=== PATIENT | male | born 1945 | race Caucasian/White ===

== ENCOUNTER 2023-05-31 07:18 | Day surgery (SDC) | payer OTHER ==
--- NOTE | 2023-04-25 14:42 | RAD REPORT ---
EXAM DESCRIPTION: Lupe Quintanilla And Briseida (2 Views)04/25/2023 2:23 pm CLINICAL HISTORY: Preop. Hypertension COMPARISON: None FINDINGS: The lungs appear clear of acute infiltrate. The heart is normal size IMPRESSION: No acute abnormalities displayed
[2023-04-25 14:43] LABS: Anion Gap 8.8 mEq/L (5.0-15.0); Potassium 3.8 mEq/L (3.5-5.1)
[2023-04-25 14:52] LABS: PT Prothrombin Time 12.4 SECONDS (9.5-12.5); Protime INR 1.13
[2023-04-25 15:23] LABS: Absolute Eosinophils 0.1 K/uL (0-0.5); Absolute Lymphocytes (CBC) 0.8 K/uL (0.7-4.9); Absolute Monocytes 0.6 K/uL (0.1-1.3); Absolute Neutrophil 3.6 K/uL (1.8-8.0); Basophils % 0.5 % (0-1.3); Eosinophils % 1.9 % (0-4.4); Hematocrit 39.8 % (39.6-49.0); Hemoglobin 13.5 g/dL (13.6-17.9); Lymphocytes % 15.8 % (15.3-44.8); MCH 27.6 pg (27.0-35.0); MCHC 33.8 g/dL (32.0-36.0); MCV 81.7 fL (80-100); MPV 8.6 fL (7.6-11.3); Monocytes % 12.3 % (3.3-12.3); Neutrophils % 69.5 % (41.7-73.7); Nucleated Red Blood Cells % 0.3 % (0-0); Platelets 100 thou/uL (152-406); RBC Red Blood Cell Count 4.88 M/uL (4.33-5.43)
--- NOTE | 2023-04-28 14:49 | EKG ---
Test Date: 2023-04-25 Test Time: 15:06:52 Strip Stamp Straightener: BENITO MEASUREMENT RESULTS: Intervals: Rate: 66 [place]: 200 QRSD: 146 QT: 406 QTc: 425 [place]: P: 61 [place]: 200 QRS: 85 T: 48 INTERPRETIVE STATEMENTS: Normal sinus rhythm Right bundle branch block Abnormal ECG No previous ECG available for comparison Electronically Signed On 04-28-23 14:43:20 EXPEDITER CLERK by Enzo Hubbard
[2023-05-31] MEDS: Ringers Lactate 1,000 ML IV ONE (07:35)
[2023-05-31] MEDS ORDERED: FENTANYL CITR 100 MCG/2 ML ONE (08:11)
[2023-05-31] MEDS ORDERED: propofoL 200 MG/20 ML VIAL IV ONE (08:11)
[2023-05-31] MEDS ORDERED: ONDANSETRON 4 MG/2 ML VIAL ONE (08:11)
[2023-05-31] MEDS: CEFAZOLIN SODIUM 2 GM/VIAL ONE (08:19)
[2023-05-31] MEDS ORDERED: GLYCOPYRROLATE 0.2 MG/ML SYR ONE (08:41)
[2023-05-31] MEDS ORDERED: NS 0.9% VIAL 10 ML ONE (08:44)
[2023-05-31] MEDS ORDERED: EPHEDRINE SULF 50 MG/ML VIAL ONE (08:44)
[2023-05-31] MEDS ORDERED: CODEINE 30MG/APAP 300MG TAB PO PRN (10:03)
[2023-05-31] MEDS: PHENAZOPYRIDINE 100MG TAB PO ONE (10:15)
[2023-05-31] MEDS ORDERED: PHENAZOPYRIDINE 100MG TAB PO ONE (10:17)
[2023-05-31 12:36] VITALS: BP 112/66; TEMP 97.2; O2SAT 10
--- NOTE | 2023-05-31 20:52 | OP ---
Surgeon: RAPHAEL LINDA Preoperative Diagnoses: 1.Benign prostatic hypertrophy with lower urinary tract obstruction and symptoms. 2.Recurrent/persistent urinary tract infection. Postoperative Diagnoses: 1.Benign prostatic hypertrophy with lower urinary tract obstruction and symptoms. 2.Recurrent/persistent urinary tract infection. Principal Procedure: UroLift with 6 UL2 devices deployed and 1 ATC UL1 device deployed for a total o f 7 implants placed. Indication For Procedure: Mr. Miller presented to the Urology Clinic with obstructive lower urinary symptoms and an issue with urinary tract infection. He was evaluated including imaging with no uppe r tract calculi and only the presence of a mildly complex right cystic renal lesion. He subsequently was medically managed, but had persistence of the urinary tract infection associated with incomplete emptying of his bladder. As a result, he was counseled on options for definitive management and colin cted to proceed with surgical therapy. The patient of note was on an extended course of antimicrobia l therapy as of the time of this procedure. Procedure In Detail: The patient was consented in the preoperative holding area before being transfe rred to the operative suite where general anesthesia was induced. He was placed in the lithotomy pos ition, padded and secured to the table appropriately, and his genitalia was prepped with Hibiclens be fore being draped in standard fashion. The case was begun using a 20-Luxembourgish UroLift sheath and visua l obturator to traverse the urethra and into the bladder with relative ease. As previously noted, th ere was significant interdigitating lateral lobar hypertrophy with a mild median lobar bump that was not significantly intravesically projecting. As a result, I switched the visual obturator for the fi rst UL2 device and an implant. I targeted this implant on the patient's left side about 1.5 to 2 cm distal to the bladder neck at around the 1 to 2 o'clock position. Touching the tissue with the scope angled about 10 to 15 degrees against the tissue laterally to the patient's left, I pulled the maikol er, delivering the needle through the substance of the prostate to the capsular surface. I then angl ed the scope an additional 15 degrees laterally compressing the tissue before pulling the trigger a s econd time, deploying the capsular tab and partially retracting the needle. A third pull of the trig ryley did further retract the needle and tensioned the suture. I then advanced the scope back towards the midline and then 2 to 3 mm towards the bladder neck until the white line of the monofilament was centered in the delivery Nicholas. At this point, I pulled the trigger a fourth time tailoring the suture and deploying the urethral end piece. The end piece did situate with a nice rim of tissue between t he prostatic urethra and the entry into the bladder. There was no evidence of any intravesical compo nent of the implant after survey of the bladder neck area cystoscopically. I thus advanced the UroLi ft device back into the patient's bladder and switched that device for a new implant, which was then targeted on the patient's right side contralaterally at about 1.5 to 2 cm distal to the bladder neck. This was placed between the 10 to 11 o'clock position on the patient's right successfully. I then targeted the patient's apex and at the level of the verumontanum. After kissing the verumontanum, I placed an implant at the 2 to 3 o'clock position on the patient's left before placing a contralateral implant at around the 10 o'clock position on the patient's right. I then surveyed the channel creat ed using a visual obturator and there was residual lateral lobar intrusion largely emanating from the patient's left side; so I placed a fifth implant in the mid zone tissue between the apex and the edwin dder neck implant. This did nicely lateralize the tissue and so I surveyed the channel again created . At this point, that median lobar bump was now more evident as some of the residually obstructing t issue; but since it did not extend with any significant elevation of the median bar beyond a small po rtion of the bladder neck, attempts to manipulate it using the UroLift 2 device were not successful. As a result, I employed the ATC advanced tissue control device using the UL1 platform, the UroLift 1 platform to grasp and pull that lobar tissue back into the prostatic urethra away from the bladder n alvin and then angle at least 20 to 30 degrees towards the patient's right and targeting the needle del denis at around the 9 o'clock position, I deployed that implant and did successfully pin the median l obe over to the patient's right side of the prostate. I then surveyed the channel created, and there was a slight residual degree of apical lateral intrusion emanating from the patient's left side, so a seventh and final implant using the UroLift 2 device was performed this time in a stacked position above the midzone implant previously placed there, which did beautifully elevate and remove that tiss ue and leave a beautiful continuous anterior channel. This channel was evident even with the bladder completely decompressed. There was a slight degree of hematuria at this point, but nothing signific ant. So I retrograde filled his bladder with saline before removing the scope and placing an 18-Fren ch catheter into his bladder with ease. About 25 cc of sterile water was placed in the balloon, and the catheter was connected to a leg bag. The patient was then taken out of the lithotomy position, a wakened from general anesthesia, transferred to a stretcher, and then transferred to the [facility] in good condition. Complications: None. Discharge Disposition: He will be standard UroLift followup pathway with anticipated followup in [facility] a month's time. He will complete his course of antimicrobial therapy within the next several days and we will discontinue that antimicrobial therapy and assess for any signs of persistence of the in fection at that time. AUDREY/MODL Voice ID: [id number] Report ID: [id number]
== END 2023-05-31 11:35 | disposition home or self-care (01) ==
LOC: OR 07:18
PROVIDERS: ATTEND Urology
PROC: 0T7D8DZ Dilation of Urethra with Intraluminal Device, Via Natural or Artificial Opening Endoscopic (ICD-10-PCS; principal; 2023-05-31 08:30)
DX: N40.1 Benign prostatic hyperplasia with lower urinary tract symptoms (principal); Z87.440 Personal history of urinary (tract) infections; I10 Essential (primary) hypertension; Z88.0 Allergy status to penicillin
CPT/HCPCS: 93005; 87088; 85025; 87086; 80048; 36415; 85610; 87077; 87186; 71046; 52441; 52442 ×6; A4216; J2704; J3010; J2405; J7120

== ENCOUNTER 2023-06-01 21:02 | Inpatient (IN) | payer OTHER ==
[2023-06-01] MEDS ORDERED: NACL 0.9% IRR SOLN 4,000 ML IRR ONE (21:47)
[2023-06-01 23:04] LABS: Absolute Eosinophils 0.1 K/uL (0-0.5); Absolute Lymphocytes (CBC) 0.7 K/uL (0.7-4.9); Absolute Monocytes 0.6 K/uL (0.1-1.3); Absolute Neutrophil 2.8 K/uL (1.8-8.0); Eosinophils % 2.2 % (0-4.4); Hematocrit 40.9 % (39.6-49.0); Hemoglobin 13.7 g/dL (13.6-17.9); Lymphocytes % 15.8 % (15.3-44.8); MCH 27.2 pg (27.0-35.0); MCHC 33.5 g/dL (32.0-36.0); MCV 81.2 fL (80-100); MPV 8.1 fL (7.6-11.3); Monocytes % 13.6 % (3.3-12.3); Neutrophils % 68.4 % (41.7-73.7); Nucleated Red Blood Cells % 0.2 % (0-0); Platelets 110 thou/uL (152-406); RBC Red Blood Cell Count 5.04 M/uL (4.33-5.43); Red Cell Distribution Width 13.7 % (12.1-15.2)
[2023-06-01 23:23] LABS: Anion Gap 11.5 mEq/L (5.0-15.0); Potassium 3.5 mEq/L (3.5-5.1)
[2023-06-02] MEDS ORDERED: NACL 0.9% IRR SOLN 2,000 ML IRR ONE (00:43)
--- NOTE | 2023-06-02 00:55 | EDPHYS ---
Physician Documentation [facility] Name: Salo Miller Age: 77 yrs Sex: Male : 1945 Arrival Date: 06/01/2023 Time: 21:02 Bed 19 Private MD: ED Physician Antoine Jurado HPI: 05/31 23:37 This 77 yrs old Male presents to ER via Ambulatory with complaints of Urinary Retention.kb 23:39 Pt is a 77 year old male who presents for urinary retention since 1500 today. States he kb had a urolift done yesterday here, by dr munson. Reports hematuria, dysuria and urinary frequency after surgery and until the urinary retention started at 1500 today. Denies fever. . Historical: - Allergies: 21:29 PENICILLINS; kd3 - Immunization history:: Adult Immunizations up to date. - Social history:: Smoking status: Patient denies any tobacco usage or history of. ROS: 23:37 Constitutional: As per HPI kb Exam: 23:38 Constitutional: This is a well developed, well nourished patient who is awake, alert, kb and in no acute distress. Head/Face: Normocephalic, atraumatic. ENT: Moist Mucous membranes Cardiovascular: Regular rate Respiratory: Respirations even and unlabored. No increased work of breathing. Talking in full sentences Skin: Warm, dry with normal turgor. Normal color. MS/ Extremity: Pulses equal, no cyanosis. Neurovascular intact. Full, normal range of motion. Neuro: Awake and alert, GCS 15, oriented to person, place, time, and situation. Moves all extremities. Normal gait. 23:38 Abdomen/GI: Inspection: abdomen appears normal, Bowel sounds: normal, Palpation: soft, in all quadrants, mild abdominal tenderness, in the suprapubic area, Vital Signs: 21:27 BP 158 / 103; Pulse 77; Resp 20; Temp 98.5(O); Pulse Ox 98% ; Weight 95.25 kg; Height 5 kd3 ft. 10 in. ; 21:30 BP 114 / 83; Pulse 67; Resp 17 S; Pulse Ox 95% on R/A; jw7 22:30 BP 144 / 77; Pulse 65; Resp 17 S; Pulse Ox 93% on R/A; jw7 23:00 BP 127 / 74; Pulse 60; Resp 16 S; Pulse Ox 93% on R/A; jw7 06/01 00:00 BP 125 / 81; Pulse 64; Resp 17 S; Pulse Ox 95% on R/A; jw7 01:00 BP 126 / 75; Pulse 63; Resp 17 S; Pulse Ox 93% on R/A; jw7 02:00 BP 127 / 75; Pulse 60; Resp 17; Pulse Ox 95% ; vc1 03:00 BP 126 / 67; Pulse 62; Resp 17; Pulse Ox 93% on R/A; vc1 04:00 BP 123 / 77; Pulse 64; Resp 17; Pulse Ox 99% ; vc1 05/31 21:27 Body Mass Index 30.13 (95.25 kg, 177.8 cm) kd3 MDM: 05/31 21:09 Patient medically screened. kb 23:38 Differential diagnosis: UTI, urinary retention. Data reviewed: vital signs, nurses kb notes. 23:39 ED course: Dr Jurado inserted a 3-way cunha and ordered continuous irrigation x 4 kb liters. 06/01 00:51 Consideration of Admission/Observation Patient was admitted/placed on observation. kb Escalation of care including admission/observation considered. Management of patient was discussed with the following: Hospitalist: Dr Mills accepts pt for admission. Fruit I Farmworker: Dr Munson accepts pt for consult. Wants cunha changed to 22F [address] or 20F 2 way catheter for better irrigation. Dr Jurado will place 22[address] Counseling: I had a detailed discussion with the patient and/or guardian regarding the historical points, exam findings, and any diagnostic results supporting the discharge/admit diagnosis, lab results, radiology results, the need for further work-up and treatment in the hospital. 02:22 Differential Diagnosis altered mental status, sepsis, flu, Urinary retention . ED sp4 course: CLINICAL HISTORY: urinary retention, hematuria COMPARISON: 01/21/2023. TECHNIQUE: CTABDOMEN PELVIS WITHOUT IV CONTRAST on 06/01/2023 9:37 PM CDT This exam was performed according to our departmental dose-optimization program, which includes automated exposure control, adjustment of the mA and/or kV according to patient size and/or use of iterative reconstruction technique. FINDINGS: Lower lungs are clear. Abdomen: The liver is normal in appearance. There is no biliary dilatation. Gallbladder is decompressed. The pancreas and spleen are normal in appearance. Adrenal glands are normal. Kidneys are moderately atrophic. There is a large upper pole right renal cyst measuring 12.4 cm. Anterior mid to lower pole right renal cyst is slightly complex measuring 11.1 cm. There is no hydronephrosis. Abdominal aorta is moderately calcified without aneurysm. There is no free air. There is no retroperitoneal adenopathy. Pelvis: There is no bowel obstruction. Urinary bladder contains a large amount of hyperdense material as well as a Cunha catheter and small amount of air. There is no free fluid. There are radiation seeds within the prostate gland as well as the posterior wall of the urinary bladder. Appendix is not clearly seen. There are small left and [id number] right fat-containing inguinal hernias. Skeleton: There are no acute osseous findings. No suspicious bony lesions. IMPRESSION: Large amount of blood within the urinary bladder. Radiation seeds within the anterior prostate gland and posterior wall the urinary bladder. Unchanged large right renal cysts. . 05/31 21:37 Order name: CBC with Diff; Complete Time: 23:20 kb 05/31 21:37 Order name: Basic Metabolic Panel; Complete Time: 23:23 kb 06/01 03:17 Order name: CBC with Automated Diff EDMS 06/01 03:17 Order name: CBC with Automated Diff EDMS 06/01 03:17 Order name: CBC with Automated Diff EDMS 06/01 03:17 Order name: CBC with Automated Diff EDMS 06/01 03:17 Order name: Comprehensive Metabolic Panel EDMS 06/01 03:17 Order name: Comprehensive Metabolic Panel EDMS 06/01 03:17 Order name: Comprehensive Metabolic Panel EDMS 06/01 03:17 Order name: Comprehensive Metabolic Panel EDMS 05/31 21:37 Order name: CT Abd/Pelvis - Without Contrast kb 06/01 03:17 Order name: CONS Physician Consult EDMS 05/31 21:37 Order name: IV Start; Complete Time: 22:54 kb 05/31 23:17 Order name: Bladder Irrigation; Complete Time: 23:25 sp4 Administered Medications: 01:35 Drug: Dicyclomine PO 20 mg PO once Route: PO; jw7 02:58 Follow up: Response: No adverse reaction; Marked relief of symptoms vc1 01:35 Drug: morphine IVP or IV 2 mg IVP once over 4 mins Route: IVP; Infused Over: 4 mins; jw7 Site: left forearm; 02:59 Follow up: Response: No adverse reaction; Marked relief of symptoms vc1 01:35 Drug: Ondansetron IVP 4 mg IVP once; over 2 minutes Route: IVP; Site: left forearm; jw7 02:59 Follow up: Response: No adverse reaction; Marked relief of symptoms vc1 01:35 Drug: Phenazopyridine PO 200 mg PO once Route: PO; jw7 02:59 Follow up: Response: No adverse reaction; Marked relief of symptoms vc1 Disposition: 00:53 Co-signature as Attending Physician, Antoine Jurado MD I agree with the assessment sp4 and plan of care. I reviewed the patient's care provided by Advanced Practice Provider \T\ agree w/ the diagnosis \T\ care plan. I personally saw the pt \T\ performed a substantive portion of the visit, incldng all aspects of the (History/Exam/Medical Decision Making). Disposition Summary: 06/02/23 00:54 Hospitalization Ordered Notes: Hospitalization Status: Inpatient Admission kb Provider: Abelino Mills [facility] kb Condition: Stable kb Problem: new kb Symptoms: are unchanged kb Bed/Room Type: Standard Room Assignment: 402(06/02/23 03:53) jb4 Diagnosis - Hematuria, unspecified kb - Retention of urine, unspecified kb Forms: - Medication Reconciliation Form kb - SBAR form kb - Leadership Thank You Letter kb Signatures: Dispatcher [employer] Yesenia Jauregui, DIRECTOR OF MEDICAL REVIEW-C DIRECTOR OF MEDICAL REVIEW-CkRonnie Wells RN RN jb4 Deya Castro RN RN kd3 Erica Kenyon RN RN jw7 Antoine Jurado MD MD sp4 Joyce Taveras RN vc1 Corrections: (The following items were deleted from the chart) 03:53 00:54 kb jb4 04:39 05/31 21:15 Bladder Scanner ordered. kb vc1
--- NOTE | 2023-06-02 00:55 | ER ---
Nurse's Notes [facility] Name: Salo Miller Age: 77 yrs Sex: Male : 1945 Arrival Date: 06/01/2023 Time: 21:02 Bed 19 Private MD: Diagnosis: Hematuria, unspecified;Retention of urine, unspecified Presentation: 05/31 21:27 Chief complaint: Patient states: I had a urolift yesterday by Dr Munson. I had been kd3 urinating blood ever since. Today around 3 pm, i have not been able to void at all. Coronavirus screen: Vaccine status: Patient reports receiving the 2nd dose of the covid vaccine. Ebola Screen: No symptoms or risks identified at this time. Initial Sepsis Screen: Does the patient meet any 2 criteria? No. Patient's initial sepsis screen is negative. Does the patient have a suspected source of infection? No. Patient's initial sepsis screen is negative. Risk Assessment: Do you want to hurt yourself or someone else? Patient reports no desire to harm self or others. Onset of symptoms was June 01, 2023. 21:27 Method Of Arrival: Ambulatory kd3 21:27 Acuity: DAVIS 3 kd3 Triage Assessment: 21:29 General: Appears uncomfortable, Behavior is calm, cooperative. Pain: Complains of pain kd3 in suprapubic area. Historical: - Allergies: 21:29 PENICILLINS; kd3 - Immunization history:: Adult Immunizations up to date. - Social history:: Smoking status: Patient denies any tobacco usage or history of. Screenin:20 [facility] ED Fall Risk Assessment (Adult) History of falling in the last 3 months, jw7 including since admission No falls in past 3 months (0 pts) Confusion or Disorientation No (0 pts) Intoxicated or Sedated No (0 pts) Impaired Gait Yes (1 pt) Mobility Assist Device Used Yes (1 pt) Altered Elimination Yes (1 pt) Score/Fall Risk Level 3 or more points = High Risk Oriented to surroundings, Maintained a safe environment, Educated pt \T\ family on fall prevention, incl call for assistance when getting out of bed, Assessed \T\ reinforced patient's understanding of fall precautions. Abuse screen: Denies threats or abuse. Denies injuries from another. Nutritional screening: No deficits noted. Tuberculosis screening: No symptoms or risk factors identified. Assessment: 21:20 General: Appears in no apparent distress. uncomfortable, Behavior is calm, cooperative. jw7 Pain: Complains of pain in suprapubic area Pain does not radiate. Pain currently is 4 out of 10 on a pain scale. Quality of pain is described as crampy, Pain began suddenly, Is continuous. Neuro: Level of Consciousness is awake, alert, obeys commands, Oriented to person, place, time, situation. Cardiovascular: Heart tones S1 S2 present Capillary refill < 3 seconds Clubbing of nail beds is absent JVD is absent Patient's skin is warm and dry. Respiratory: Airway is patent Trachea midline Respiratory effort is even, unlabored, Respiratory pattern is regular, symmetrical, Breath sounds are clear bilaterally. GI: Abdomen is round non-distended, Bowel sounds present X 4 quads. Abd is soft X 4 quads Abdomen is tender to palpation in suprapubic area. : 3-way catheter in place to gravity drainage Urine is paradise blood, Reports inability to void, pain in suprapubic area. EENT: No deficits noted. No signs and/or symptoms were reported regarding the EENT system. Derm: Skin is healthy with good turgor, is fragile, Skin is dry, Skin is normal, Skin temperature is warm. Musculoskeletal: Circulation, motion, and sensation intact. Range of motion: intact in all extremities. 22:20 Reassessment: Patient appears in no apparent distress at this time. No changes from 7 previously documented assessment. Patient and/or family updated on plan of care and expected duration. Pain level reassessed. Patient is alert, oriented x 3, equal unlabored respirations, skin warm/dry/pink. 23:30 Reassessment: Patient appears in no apparent distress at this time. No changes from jw7 previously documented assessment. Patient and/or family updated on plan of care and expected duration. Pain level reassessed. Patient is alert, oriented x 3, equal unlabored respirations, skin warm/dry/pink. 06/01 00:30 Reassessment: Patient appears in no apparent distress at this time. Patient and/or jw7 family updated on plan of care and expected duration. Pain level reassessed. Patient is alert, oriented x 3, equal unlabored respirations, skin warm/dry/pink. c/o pain to abdomen that is intermittent, requesting pain medication, Provider Notified. 01:30 Reassessment: Patient appears in no apparent distress at this time. No changes from [facility] previously documented assessment. Patient and/or family updated on plan of care and expected duration. Pain level reassessed. Patient is alert, oriented x 3, equal unlabored respirations, skin warm/dry/pink. 02:30 Reassessment: Patient appears in no apparent distress at this time. No changes from 1 previously documented assessment. Patient and/or family updated on plan of care and expected duration. Pain level reassessed. Patient is alert, oriented x 3, equal unlabored respirations, skin warm/dry/pink. 03:30 Reassessment: Patient appears in no apparent distress at this time. No changes from 1 previously documented assessment. Patient and/or family updated on plan of care and expected duration. Pain level reassessed. Patient is alert, oriented x 3, equal unlabored respirations, skin warm/dry/pink. 04:30 Reassessment: Patient appears in no apparent distress at this time. No changes from 1 previously documented assessment. Patient and/or family updated on plan of care and expected duration. Pain level reassessed. Patient is alert, oriented x 3, equal unlabored respirations, skin warm/dry/pink. Vital Signs: 05/31 21:27 BP 158 / 103; Pulse 77; Resp 20; Temp 98.5(O); Pulse Ox 98% ; Weight 95.25 kg; Height 5 kd3 ft. 10 in. ; 21:30 BP 114 / 83; Pulse 67; Resp 17 S; Pulse Ox 95% on R/A; jw7 22:30 BP 144 / 77; Pulse 65; Resp 17 S; Pulse Ox 93% on R/A; jw7 23:00 BP 127 / 74; Pulse 60; Resp 16 S; Pulse Ox 93% on R/A; jw7 06/01 00:00 BP 125 / 81; Pulse 64; Resp 17 S; Pulse Ox 95% on R/A; jw7 01:00 BP 126 / 75; Pulse 63; Resp 17 S; Pulse Ox 93% on R/A; jw7 02:00 BP 127 / 75; Pulse 60; Resp 17; Pulse Ox 95% ; vc1 03:00 BP 126 / 67; Pulse 62; Resp 17; Pulse Ox 93% on R/A; vc1 04:00 BP 123 / 77; Pulse 64; Resp 17; Pulse Ox 99% ; vc1 05/31 21:27 Body Mass Index 30.13 (95.25 kg, 177.8 cm) kd3 ED Course: 05/31 21:05 Patient arrived in ED. es 21:09 Yesenia Pulido [facility]NP-C [facility] kb 21:09 Antoine Jurado MD is Attending Physician. kb 21:17 Erica Kenyon, GEOVANY is Primary Nurse. jw7 21:20 Patient has correct armband on for positive identification. Bed in low position. Call [facility] light in reach. Provided Education on: Need for bladder irrigation. 21:29 Triage completed. kd3 21:29 Arm band placed on. kd3 22:45 Initial lab(s) drawn, by me, sent to lab. Inserted saline lock: 22 gauge in left jw7 forearm, using aseptic technique. Blood collected. 22:54 Basic Metabolic Panel Sent. jw7 22:54 CBC with Diff Sent. jw7 23:59 CT Abd/Pelvis - Without Contrast In Process Unspecified. EDMS 06/01 00:54 Abelino Mills MD is Hospitalizing Provider. kb 03:02 No provider procedures requiring assistance completed. vc1 04:34 Patient admitted, IV remains in place. vc1 Administered Medications: 01:35 Drug: Dicyclomine PO 20 mg PO once Route: PO; jw7 02:58 Follow up: Response: No adverse reaction; Marked relief of symptoms vc1 01:35 Drug: morphine IVP or IV 2 mg IVP once over 4 mins Route: IVP; Infused Over: 4 mins; jw7 Site: left forearm; 02:59 Follow up: Response: No adverse reaction; Marked relief of symptoms vc1 01:35 Drug: Ondansetron IVP 4 mg IVP once; over 2 minutes Route: IVP; Site: left forearm; jw7 02:59 Follow up: Response: No adverse reaction; Marked relief of symptoms vc1 01:35 Drug: Phenazopyridine PO 200 mg PO once Route: PO; jw7 02:59 Follow up: Response: No adverse reaction; Marked relief of symptoms vc1 Medication: 03:02 VIS not applicable for this client. vc1 Intake: 05/31 23:17 Bladder irrigation vc1 06/01 00:20 Bladder Irrigation jw7 00:20 Bladder Irrigation jw7 Output: 05/31 23:17 Urine: 700ml (Baig); Total: 700ml. vc1 06/01 00:20 Urine: 1900ml (Baig); Total: 2600ml. jw7 00:20 Urine: 2100ml (Baig); Total: 4700ml. jw7 05/31 23:17 Bladder irrigation vc1 06/01 00:20 Bladder Irrigation jw7 00:20 Bladder Irrigation jw7 Outcome: 00:54 Decision to Hospitalize by Provider. kb 04:34 Condition: good vc1 04:34 Instructed on the need for admit, 04:39 Admitted to Tele accompanied by nurse, via stretcher, room 402, on monitor, Report vc1 called to faxed to 4th floor 04:40 Patient left the ED. vc1 Signatures: Dispatcher [employer] EDYesenia Ochoa, SHANK TAPPER-C SHANK TAPPER-Shanthi Carrillo Kyli RN RN kd3 Joyce Taveras RN RN vc1 Erica Kenyon RN RN jw7 Corrections: (The following items were deleted from the chart) 00:21 05/31 23:03 Urine 1900, (Baig), output 1900, jw7 jw7
[2023-06-02] MEDS ORDERED: ONDANSETRON 4 MG/2 ML VIAL ONE (01:00)
[2023-06-02] MEDS ORDERED: PHENAZOPYRIDINE 100MG TAB PO ONE (01:00)
[2023-06-02] MEDS ORDERED: DICYCLOMINE HCL 10 MG CAP ONE (01:00)
[2023-06-02] MEDS ORDERED: MORPHINE 2 MG/ML SYR ONE (01:01)
[2023-06-02] MEDS ORDERED: ONDANSETRON 4 MG/2 ML VIAL IV PRN (03:11)
--- NOTE | 2023-06-02 03:11 | P.HP ---
Certification for Inpatient Patient admitted to: Observation With expected LOS: <2 Midnights Practitioner: I am a practitioner with admitting privileges, knowledge of patient current condition, hospital course, and medical plan of care. Services: Services provided to patient in accordance with Admission requirements found in Title 42 Section 412.3 of the Code of Federal Regulations Patient History Date of Service: 06/02/23 Reason for admission: Hematuria. History of Present Illness: 77-year-old male patient with medical history significant for benign prostatic hypertrophy status post UroLift procedure who had inability to pass urine and lower abdominal pain postprocedure. He was found to have significant clot burden so he was started on bladder irrigation and was admitted for urology evaluation. He also has a medical history significant for hypertension, hypothyroidism, benign prostatic hypertrophy. No concerns for fever, chills, diarrhea prior to admission. Allergies Penicillins Allergy (Verified 05/31/23 08:37) Hives/Rash Home Medications: Atenolol/Chlorthalidone [Atenolol-Chlorthalidone 100-25] 1 tab PO DAILY 04/25/23 Famotidine 20 mg PO BEDTIME 04/25/23 Hydrocodone Bit/Acetaminophen [Hydrocodon-Acetaminoph 7.5-325] 1 tab PO DAILY PRN 04/25/23 Levothyroxine Sodium 75 mcg PO DAILY 04/25/23 Mag Oxide/D3/Turmeric Rt Xt [Magnesium-Vit D3-Turmeric Tab] 1 each PO BEDTIME 04/25/23 Meloxicam 15 mg PO DAILY 04/25/23 Potassium Chloride [Klor-Con M20] 1 tab PO BID 04/25/23 Rabeprazole Sodium 20 mg PO DAILY 04/25/23 Sucralfate [Carafate*] 1 gm PO ACHS 04/25/23 Tamsulosin [Flomax*] 0.4 mg PO BEDTIME 04/25/23 methocarbamoL [Robaxin*] 750 mg PO DAILY 04/25/23 Codeine/APAP [Tylenol #3*] 1 tab PO Q6H PRN #12 tab 05/31/23 Review of Systems General: Unremarkable Eyes: Unremarkable ENT: Unremarkable Respiratory: Unremarkable Cardiovascular: Unremarkable Gastrointestinal: Unremarkable Genitourinary: Hematuria Musculoskeletal: Unremarkable Integumentary: Unremarkable Neurological: Unremarkable Lymphatics: Unremarkable Physical Examination - Physical Exam General: Alert, Oriented x3 HEENT: Atraumatic Neck: Supple Respiratory: Normal air movement Cardiovascular: Regular rate/rhythm, Normal S1 S2 Gastrointestinal: Soft and benign Musculoskeletal: No swelling Neurological: Normal speech, Normal strength at 5/5 x4 extr Urinary: Baig catheter - Studies Laboratory Data (last 24 hrs) 06/01/23 06/01/23 22:47 22:47 WBC 4.20 L Hgb 13.7 Hct 40.9 Plt Count 110 L Sodium 132 L Potassium 3.5 BUN 17 Creatinine 1.29 Glucose 125 H Assessment and Plan - Plan Hematuria post UroLift procedure: Continuous bladder irrigation started. Empiric antibiotic therapy of Rocephin started. Urology consultation placed for management recommendation. History of hypertension: We will monitor vital signs per unit protocol and continue outpatient antihypertensive medications. History of hypothyroidism: Continue levothyroxine dose. History of benign prostatic hypertrophy: Will continue tamsulosin dose. Prophylaxis: SCDs for DVT prophylaxis secondary to hematuria episode. CODE STATUS: Full code. Disposition: We will treat his hematuria episode and he will be discharged once cleared by urology service. - Advance Directives Does patient have a Living Will: No Does patient have a Durable POA for Healthcare: No
[2023-06-02 03:55] VITALS: BMI 29.9
[2023-06-02] MEDS: NA CHLORIDE 0.9% 1,000 ML IV SCH (05:04)
[2023-06-02] MEDS ORDERED: NACL 0.9% IRRG SOLN 1000 ML IRR PRN (05:53)
[2023-06-02] MEDS: NACL 0.9% IRR SOLN 2,000 ML IRR ONE (06:13)
[2023-06-02] MEDS ORDERED: INFLUENZA VACCINE (for 6+ mo) 0.5 ML DOSE IMVAC ONE (08:00)
[2023-06-02] MEDS: SODIUM CHL 0.9% IRR SOLN 2000 ML IRR PRN (09:26)
[2023-06-02] MEDS: CEFTRIAXONE 1,000 MG in NA CHLORIDE 0.9% 50 ML IVPB SCH (09:26)
[2023-06-02] MEDS: ACETAMINOPHEN 500 MG TAB PO PRN (12:39)
[2023-06-02 12:52] VITALS: O2SAT 94
--- NOTE | 2023-06-02 14:25 | RAD REPORT ---
EXAM DESCRIPTION: CT - Abdomen Pelvis Wo Contrast - 06/02/2023 6:24 am CLINICAL HISTORY: Urinary retention, hematuria COMPARISON: 01/21/2023. TECHNIQUE: CT ABDOMEN PELVIS WITHOUT IV CONTRAST on 06/01/2023 9:37 PM CDT This exam was performed according to our departmental dose-optimization program, which includes autom ated exposure control, adjustment of the mA and/or kV according to patient size and/or use of iterati ve reconstruction technique. FINDINGS: Lower lungs are clear. Abdomen: The liver is normal in appearance. There is no biliary dilatation. Gallbladder is decompress ed. The pancreas and spleen are normal in appearance. Adrenal glands are normal. Kidneys are moderate ly atrophic. There is a large upper pole right renal cyst measuring 12.4 cm. Anterior mid to lower po le right renal cyst is slightly complex measuring 11.1 cm. There is no hydronephrosis. Abdominal aorta is moderately calcified without aneurysm. There is no free air. There is no retroperi toneal adenopathy. Pelvis: There is no bowel obstruction. Urinary bladder contains a large amount of hyperdense material as well as a Baig catheter and small amount of air. There is no free fluid. There are radiation see ds within the prostate gland as well as the posterior wall of the urinary bladder. Appendix is not cl early seen. There are small left and [id number] right fat-containing inguinal hernias. Skeleton: There are no acute osseous findings. No suspicious bony lesions. IMPRESSION: Large amount of blood within the urinary bladder. Radiation seeds within the anterior prostate gland and posterior wall the urinary bladder. Unchanged large right renal cysts. Electronically signed by: Ric Truong MD 06/02/2023 12:34 AM CDT Due to temporary technical issues with the PACS/Fluency reporting system, reports are being signed by the in house radiologists without review as a courtesy to insure prompt reporting. The interpreting radiologist is fully responsible for the content of the report.
--- NOTE | 2023-06-02 14:45 | P.PN ---
Date of Service: 06/02/23 Patient seen and evaluated. He has no new complaints Status post manual bladder irrigation by Dr. Munson at this morning. Baig catheter is in place and advised him bloodstained urine. Check urine analysis and reflex culture. Continue Rocephin. Analgesics as needed. Monitor urine output. Urology to follow.
[2023-06-02] MEDS: SUCRALFATE 1 GM TABLET PO SCH (16:30)
[2023-06-02] MEDS: MORPHINE 2 MG/ML SYR IV PRN (17:25)
--- NOTE | 2023-06-02 19:19 | P.CNS ---
Date of Consult: 06/02/23 Reason for Consult: gross hematuria and clot retention Chief Complaint: Hematuria. 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 As a result, patient underwent prostatic urethral lift to relieve his obstruction due to BPH on 05/31/2023. Post procedurally, he was discharged from recovery presumably in good condition, but patient suggests he had a significant degree of gross hematuria even at that time. Overnight, he developed progressive increased difficulty voiding associated with the passage of some blood clots in his urine, and eventually he ended up in the emergency department. There, they placed a urethral Baig catheter three-way and started him on CBI. 05/04/2022 CT chest abdomen and pelvis with contrast impression: Findings: 2 large cystic lesions emanate from the right kidney superior pole measuring 12.7 cm and anterior midpole measuring 9.6 cm. There is slight complexity to the mid pole lesion with subtle calcifications along the wall. However there has been no interval change since 02/24/2021 in these 2 cysts. -My review: Hounsfield units were measured without contrast, 6 HU, and with contrast 4 HU. Some slight calcifications seen in the lower of the 2 cysts' wall as via the report. -Assessment less than 2% chance of malignancy based on the most recent imaging and thus no further routine follow-up is required 03/28/2023 PSA 0.9 urine culture E. coli pansensitive. Placed on 28 days of Bactrim DS on 05/10/2023 in preparation for surgery completed as above. Examination: Patient well-appearing and in no acute distress Alert, awake, oriented x 3 Resting comfortably recumbent in the hospital bed 22 Croatian three-way Baig catheter in place on slow drip CBI at the time of my evaluation with pink urine draining. Bladder irrigation procedure note (8 AM) I the catheter from its drainage tubing and clamp the CBI. I then utilized a 60 cc catheter tip syringe and some sterile saline alternating with sterile water to irrigate his bladder aggressively and try to remove a significant volume of clot within. Likely 300 cc of clot was removed. I then reconnected his catheter to slow to moderate drip CBI in order to achieve light pink drainage of urine. Assessment and recommendation: 77-year-old gentleman with hypertension and CLL with BPH with LUTS complicated by epididymal orchitis and recurrent UTI in the absence of other source for the infection s/p UroLift 05/31/2023 now complicated by postop gross hematuria and clot retention. -Will continue the patient on CBI and attempt to wean over the course of the day if possible, keeping the urine light pink to clear -Continue Bactrim DS twice daily for now Addendum 12:45 PM I returned to see the patient around 12:45 PM and again assessed his urine. Still on slow drip CBI, the urine was moderately pink. Repeat Bladder irrigation procedure note (12:45 PM) I the catheter from its drainage tubing and clamp the CBI. I then utilized a 60 cc catheter tip syringe and some sterile saline alternating with sterile water for a total of 1 L to irrigate his bladder aggressively and I did remove a significant volume of remaining clot within. At the end of the irrigation, his urine was sandy colored on slow drip CBI, but no additional clots were identified. He did have some bladder spasms associated with the aggressive irrigation. Addendum 8:00 PM: I returned to see the patient and again assessed his urine. On very slow drip CBI, the urine was slightly pink-tinged tea colored. Repeat bladder irrigation procedure note (8:00 PM): I again the catheter from his drainage tubing and clamp the CBI. Utilizing the 60 cc catheter tip syringe and sterile saline, I irrigated his bladder with 250 cc with return of only light pink urine and very minimal old clots off the bladder sidewall. The patient did experience an additional bladder spasm associated with the irrigation, which contributed to some of the hematuria development, but in the absence of clots, I returned him to slow drip CBI, 1 GTT per second, and his urine was translucent pink. Recommendation: -Ditropan 10 mg extended release starting now and continued daily while catheter is in place -Agree with antimicrobial therapy with ceftriaxone -Continue CBI titrated to keep urine light pink to clear overnight -A.m. labs recheck -Anticipate likely ability to discontinue CBI in the morning with subsequent discharge assuming continued improvement in the hematuria overnight -If failure to resolve or continued significant hematuria, plan operative intervention tomorrow around midday, cystoscopy and fulguration, possible clot evacuation -I asked the patient to not eat breakfast in the morning, though we will allow a tray to be delivered; so if I assess operative intervention not required in the morning, he can simply have breakfast in a delayed fashion. Allergies Penicillins Allergy (Verified 05/31/23 08:37) Hives/Rash Home medications list reviewed: Yes Home Medications: Atenolol/Chlorthalidone [Atenolol-Chlorthalidone 100-25] 1 tab PO DAILY 04/25/23 Famotidine 20 mg PO BEDTIME 04/25/23 Hydrocodone Bit/Acetaminophen [Hydrocodon-Acetaminoph 7.5-325] 1 tab PO DAILY PRN 04/25/23 Levothyroxine Sodium 75 mcg PO DAILY 04/25/23 Mag Oxide/D3/Turmeric Rt Xt [Magnesium-Vit D3-Turmeric Tab] 1 each PO BEDTIME 04/25/23 Meloxicam 15 mg PO DAILY 04/25/23 Potassium Chloride [Klor-Con M20] 1 tab PO BID 04/25/23 Rabeprazole Sodium 20 mg PO DAILY 04/25/23 Sucralfate [Carafate*] 1 gm PO ACHS 04/25/23 Tamsulosin [Flomax*] 0.4 mg PO BEDTIME 04/25/23 methocarbamoL [Robaxin*] 750 mg PO DAILY 04/25/23 Codeine/APAP [Tylenol #3*] 1 tab PO Q6H PRN #12 tab 05/31/23 - Family History Father History Unknown: Yes Medical History: Kidney disease Notes: Kidney failure - Social History Alcohol use: No CD- Drugs: Yes Place of Residence: Home Physical Examination Temp Pulse Resp BP Pulse Ox 98 F 70 14 116/70 95 06/02/23 16:00 06/02/23 16:00 06/02/23 17:25 06/02/23 16:00 06/02/23 17:25 Laboratory Data (last 24 hrs) 06/01/23 06/01/23 22:47 22:47 WBC 4.20 L Hgb 13.7 Hct 40.9 Plt Count 110 L Sodium 132 L Potassium 3.5 BUN 17 Creatinine 1.29 Glucose 125 H - Problems (1) Gross hematuria Current Visit: Yes Status: Acute (2) Clot retention of urine Current Visit: Yes Status: Acute Conclusions/Impression: see HPI A/P Critical Care: No
[2023-06-02] MEDS: OXYBUTYNIN ER 5 MG TAB PO SCH (21:47)
[2023-06-02] MEDS: TAMSULOSIN 0.4 MG SR CAP PO SCH (21:47)
[2023-06-03 07:18] LABS: Absolute Eosinophils 0.1 K/uL (0-0.5); Absolute Lymphocytes (CBC) 0.8 K/uL (0.7-4.9); Absolute Monocytes 0.6 K/uL (0.1-1.3); Absolute Neutrophil 3.3 K/uL (1.8-8.0); Basophils % 0.1 % (0-1.3); Eosinophils % 2.5 % (0-4.4); Hematocrit 37.2 % (39.6-49.0); Hemoglobin 12.7 g/dL (13.6-17.9); Lymphocytes % 16.8 % (15.3-44.8); MCH 27.7 pg (27.0-35.0); MCHC 34.2 g/dL (32.0-36.0); MPV 7.7 fL (7.6-11.3); Monocytes % 11.4 % (3.3-12.3); Neutrophils % 69.2 % (41.7-73.7); Nucleated Red Blood Cells % 0.4 % (0-0); Platelets 96 thou/uL (152-406); RBC Red Blood Cell Count 4.59 M/uL (4.33-5.43); Red Cell Distribution Width 13.9 % (12.1-15.2)
[2023-06-03 07:33] LABS: Albumin 3.3 g/dL (3.4-5.0); Albumin/Globulin Ratio 1.1 (1.1-1.8); Anion Gap 11.4 mEq/L (5.0-15.0); Bilirubin Total 0.6 mg/dL (0.2-1.0); Potassium 3.4 mEq/L (3.5-5.1); Protein, Total 6.3 g/dL (6.4-8.2)
[2023-06-03] MEDS: methocarbamoL 750 MG TAB PO SCH (08:42)
[2023-06-03] MEDS: RABEPRAZOLE SODIUM 20 MG PO SCH (08:42)
[2023-06-03] MEDS: LEVOTHYROXINE SOD 0.075 MG TAB PO SCH (08:42)
[2023-06-03 09:25] LABS: Blood Morphology Comment NOT SEEN (NOT SEEN); Platelet Estimate DECR; White Blood Cell Scan OK (OK)
[2023-06-03 13:57] VITALS: BP 110/63; TEMP 97.6
--- NOTE | 2023-06-03 16:00 | P.PN ---
Date of Service: 06/03/23 77-year-old gentleman with hypertension and CLL with BPH with LUTS complicated by epididymal orchitis and recurrent UTI in the absence of other source for the infection s/p UroLift 05/31/2023 now complicated by postop gross hematuria and clot retention. Patient seen this morning around 8:30 AM having been continued on very slow drip CBI overnight. The original 3 L of irrigant fluid bags were still present with over half of the fluid present in each bag. The patient's urine was light tea colored at this point. He said he had 1 issue of clot retention overnight around 5 AM that required the nurses to irrigate the catheter and remove the clot. Bladder irrigation procedure note (8:45AM): I again the catheter from his drainage tubing and clamp the CBI. Utilizing the 60 cc catheter tip syringe and sterile saline, I irrigated his bladder with 500 cc NS with return of around 50 cc of old clots off the bladder sidewall. The patient did experience an additional bladder spasm associated with the irrigation, but when I was done, the fluid draining was minimally pink without any CBI. As a result, I recommended the following: CBI clamped and will observe over the next several hours. I returned this afternoon around 1500 hrs. and made a reassessment. No additional bladder irrigations have been required, and the patient was generally doing well. The fluid draining from his catheter was clear. As a result, I discussed with the patient the opportunity for a voiding trial be given prior to discharge. Active voiding trial and repeat bladder irrigation procedure note: Begin to retrograde fill his bladder with normal saline and the previously clamped fluid associated with the CBI. After likely 25 to 50 cc instilled, he began to have a severe bladder spasm, and I questioned whether any clot was still present within his bladder. As a result, I again irrigated his bladder using a 60 cc catheter tip syringe and some saline, and I removed an additional 50 cc of old dark partially clotted bloody fluid. I then continue to irrigate his bladder with an additional 300 cc, and no additional clots were obtained and the return of irrigant fluid and urine was crystal clear. As a result, I recommended we continue with a voiding trial; so I continued to slowly fill his bladder using the CBI infusion. After about 75 cc, he had another bladder spasm, but no urine was expelled around the catheter; so I simply clamped the irrigant in flow until the spasm resolved before resuming the input of fluid. After another 50 cc was instilled, he had yet another spasm at which point the fluid was clamped again for approximately 125 cc instilled. Once that spasm resolved, I then filled his bladder with an additional 50 to 75 cc for a total of around 150 to 200 cc instilled. I then deflated his catheter of approximately 40 cc of sterile water and air, and remove the catheter. He had no immediate spasmodic incontinence, and was able to get up and go to the toilet because he felt the urge to defecate. There he was able to void 170 cc of clear fluid. He then returned to sit in a chair thereafter, and within the course of the next 15 minutes, he voided again another 200 cc of clear fluid. Recommendation: -Discharge with Ditropan 10 mg extended release daily for the next 2 weeks -Resume Bactrim once home on discharge -Valium 5 mg every 12 hours as needed breakthrough spasms -I strongly counseled the patient as well as his daughter, who is a nurse with [employer] [facility] [employer], on the importance of notifying me if his urine becomes bloody (bright pink/red, especially if none translucent, or if he develops significant clots with difficulty voiding). -Follow-up per routine with me postoperatively about a month following the UroLift
--- NOTE | 2023-06-03 16:17 | P.DS ---
Admission Date: 06/03/23 Discharge Date: 06/03/23 Disposition: ROUTINE DISCHARGE Discharge Condition: GOOD Reason for Admission: Hematuria. Procedures: Bladder Irrigations (frequent), CBI, and Voiding trial - Problems (1) Gross hematuria Current Visit: Yes Status: Acute (2) Clot retention of urine Current Visit: Yes Status: Acute Brief History of Present Illness: 77-year-old gentleman with hypertension and CLL on bendamustine plus rituximab since May 2020 with right sided caliectasis associated with upper tract and lower tract urothelial thickening with 11 cm right Bosniak 2F complex renal cyst w/o growth on active surveillance, in the setting of overactive bladder LUTS due to BPH p cystoscopy 03/05/21 revealing lateral lobar hypertrophy with elevated median bar without significant intravesical projection, LUTS eventually complicated by epididymal orchitis on the right, and despite upper tract imaging and repeat cystoscopy as well as poppyseed test, no additional source for the infection was identified. As a result, patient underwent prostatic urethral lift to relieve his obstruction due to BPH on 05/31/2023. Post procedurally, he was discharged from recovery presumably in good condition, but patient suggests he had a significant degree of gross hematuria even at that time. Overnight, he developed progressive increased difficulty voiding associated with the passage of some blood clots in his urine, and eventually he ended up in the emergency department. There, they placed a urethral Baig catheter three-way and started him on CBI. Hospital Course: 77-year-old gentleman with hypertension and CLL with BPH with LUTS complicated by epididymal orchitis and recurrent UTI in the absence of other source for the infection s/p UroLift 05/31/2023 now complicated by postop gross hematuria and clot retention. After having been on CBI with intermittent manual irrigations, we were able to achieve resolution of the significant gross hematuria and rid his bladder of the clots. He was continued on ceftriaxone IV antimicrobial therapy while an inpatient, and oxybutynin was employed for bladder spasms, which he experienced with a degree of severity, common after the UroLift. Eventually, his urinary cleared and remain clear for several hours off CBI, and did a voiding trial was administered. He passed the voiding trial, and subsequently voided yet again on his own several minutes later with clear urine. He was eating and tolerating a diet well, his pain was controlled, and thus he was eligible for discharge in good condition. Vital Signs/Physical Exam: Temp Pulse Resp BP Pulse Ox 97.6 F 73 17 110/63 94 06/03/23 12:00 06/03/23 12:00 06/03/23 12:00 06/03/23 12:00 06/03/23 12:00 General: Alert, In no apparent distress, Oriented x3, Cooperative HEENT: Atraumatic, Normocephalic, PERRLA, Mucous membr. moist/pink Respiratory: Normal air movement Neurological: Normal gait, Normal speech, Normal strength at 5/5 x4 extr Laboratory Data at Discharge: WBC 4.80 thou/uL (4.3-10.9) 06/03/23 06:50 Hgb 12.7 g/dL (13.6-17.9) L 06/03/23 06:50 Hct 37.2 % (39.6-49.0) L 06/03/23 06:50 Plt Count 96 thou/uL (152-406) L 06/03/23 06:50 Sodium 135 mEq/L (136-145) L 06/03/23 06:50 Potassium 3.4 mEq/L (3.5-5.1) L 06/03/23 06:50 BUN 12 mg/dL (7-18) 06/03/23 06:50 Creatinine 1.00 mg/dL (0.70-1.30) 06/03/23 06:50 Glucose 105 mg/dL (74-106) 06/03/23 06:50 Total Bilirubin 0.6 mg/dL (0.2-1.0) 06/03/23 06:50 AST 16 U/L (15-37) 06/03/23 06:50 ALT 15 U/L (16-61) L 06/03/23 06:50 Alkaline Phosphatase 75 U/L (45-117) 06/03/23 06:50 Home Medications: Atenolol/Chlorthalidone [Atenolol-Chlorthalidone 100-25] 1 tab PO DAILY 04/25/23 Famotidine 20 mg PO BEDTIME 04/25/23 Hydrocodone Bit/Acetaminophen [Hydrocodon-Acetaminoph 7.5-325] 1 tab PO DAILY PRN 04/25/23 Levothyroxine Sodium 75 mcg PO DAILY 04/25/23 Mag Oxide/D3/Turmeric Rt Xt [Magnesium-Vit D3-Turmeric Tab] 1 each PO BEDTIME 04/25/23 Meloxicam 15 mg PO DAILY 04/25/23 Potassium Chloride [Klor-Con M20] 1 tab PO BID 04/25/23 Rabeprazole Sodium 20 mg PO DAILY 04/25/23 Sucralfate [Carafate*] 1 gm PO ACHS 04/25/23 Tamsulosin [Flomax*] 0.4 mg PO BEDTIME 04/25/23 methocarbamoL [Robaxin*] 750 mg PO DAILY 04/25/23 Codeine/APAP [Tylenol #3*] 1 tab PO Q6H PRN #12 tab 05/31/23 diazePAM [Valium] 5 mg PO BID PRN #6 tab 06/03/23 oxyBUTYnin chloride [Ditropan Xl*] 10 mg PO DAILY #14 tab.sa 06/03/23 New Medications: oxyBUTYnin chloride [Ditropan Xl*] 10 mg PO DAILY #14 tab.sa diazePAM [Valium] 5 mg PO BID PRN #6 tab PRN Reason: breakthrough bladder spasms Physician Discharge Instructions: Notify me if you develop any fever (temperature greater than 100.4 Fahrenheit), intractable nausea or vomiting, increasing pain not controlled by pain medications, or other unusual signs or symptoms. You should also notify me if you develop bright red blood in the urine, particularly if it is nontranslucent (not see-through) and associated with significant sized clots. You may see some tiny blood clots in your urine, which is common. Should you have any difficulty urinating, please notify me as well. I have sent a prescription for Ditropan extended release/oxybutynin 10 mg tablets, which you should take daily to assist with the severity of the bladder spasms that you have been experiencing. I have also sent a prescription for Valium/diazepam 5 mg tablets, which you may take only as needed when the spasms breakthrough the control provided by the oxybutynin/Ditropan. Please take note, if you take the Valium/diazepam, you may not drive or operate heavy machinery, and you should not perform any complex mental tasks, as this drug is equivalent to alcoholic intoxication. Please note: Do not take your extended release potassium supplement (Klor-Con) while taking the Ditropan/oxybutynin, as the combination of the 2 medications can risk of fatal heart condition. If you feel like you do not need the Ditropan/oxybutynin, weight at least 24 hours for it to get out of your system before going back on the Klor-Con. If not already scheduled, contact my office to arrange follow-up in about 1 month's time interval assessment following your UroLift. All the best! WBR Diet: AHA Activity: Ad flakito Followup: Enid Wheat MD [Primary Care Provider] - Bucky Munson [ACTIVE - CAN ADMIT] -
[2023-06-04] MEDS ORDERED: PANTOPRAZOLE 40MG TABLET PO SCH (09:00)
== END 2023-06-03 17:08 | disposition home or self-care (01) | DRG 920 ==
LOC: ER 21:02 → ERHOLD 06-02 03:11 → 4TH 06-02 03:54 → OBSVTOIN 06-03 09:10
PROVIDERS: ADMIT Internal Medicine Nephrology; ATTEND Hospitalist
DX: N99.820 Postprocedural hemorrhage of a genitourinary system organ or structure following a genitourinary system procedure (principal); C91.10 Chronic lymphocytic leukemia of B-cell type not having achieved remission; I10 Essential (primary) hypertension; E03.9 Hypothyroidism, unspecified; N40.1 Benign prostatic hyperplasia with lower urinary tract symptoms; R33.8 Other retention of urine; R31.0 Gross hematuria; Z88.0 Allergy status to penicillin; Z79.890 Hormone replacement therapy; Z79.899 Other long term (current) drug therapy; Y83.8 Other surgical procedures as the cause of abnormal reaction of the patient, or of later complication, without mention of misadventure at the time of the procedure
CPT/HCPCS: 36415; 74176; 80048; 80053; 85025; 96374; 96375; 99285; G0378; J0696; J2270; J2405; J7030

== ENCOUNTER 2024-05-19 10:44 | Emergency (ER) | payer OTHER ==
[2024-05-19] MEDS ORDERED: NA CHLORIDE 0.9% 500 ML ONE (11:26)
[2024-05-19 12:02] LABS: Basophils % 0.3 % (0-1.3); Eosinophils % 0.3 % (0-4.4); Hematocrit 28.8 % (39.6-49.0); Hemoglobin 9.7 g/dL (13.6-17.9); Lymphocytes % 9.6 % (15.3-44.8); MCH 26.2 pg (27.0-35.0); MCHC 33.8 g/dL (32.0-36.0); MCV 77.7 fL (80-100); MPV 8.1 fL (7.6-11.3); Monocytes % 11.2 % (3.3-12.3); Neutrophils % 78.6 % (41.7-73.7); Nucleated Red Blood Cells % 0.1 % (0-0); Platelets 136 thou/uL (152-406); RBC Red Blood Cell Count 3.71 M/uL (4.33-5.43)
[2024-05-19 12:03] LABS: Absolute Lymphocytes (CBC) 0.6 K/uL (0.7-4.9); Absolute Monocytes 0.7 K/uL (0.1-1.3)
[2024-05-19 12:11] LABS: Specific Gravity 1.016 (1.005-1.030); Sqamous Epithelial <5 /HPF (None Seen); Urine Bacteria None Seen /HPF (<20); Urine Bilirubin NEGATIVE (Negative); Urine Blood Negative (Negative); Urine Clarity Turbid (Clear); Urine Color Light-Yellow (Yellow); Urine Culture Reflex Order NOT NEEDED; Urine Glucose NEGATIVE (Negative); Urine Ketones NEGATIVE (Negative); Urine Micro Reflex YN NO BILL MICROSCOPIC; Urine Mucus Slight /HPF (None Seen); Urine Nitrite NEGATIVE (Negative); Urine Protein NEGATIVE (Negative); Urine RBC <5 /HPF (None Seen); Urine Urobilinogen Normal (Normal); Urine WBC <5 /HPF (<5); Urine pH 7.5 (5.0-7.0)
[2024-05-19 12:20] LABS: Influenza A Ag Negative; Influenza B Ag Negative; SARS-CoV-2 Antigen Rapid Res Negative (Negative)
[2024-05-19 12:21] LABS: Albumin 3.3 g/dL (3.4-5.0); Anion Gap 10.9 mEq/L (5.0-15.0); Bilirubin Total 0.8 mg/dL (0.2-1.0); Globulin 3.2 g/dL (2.3-3.5); Magnesium 1.9 mg/dL (1.6-2.4); Potassium 2.9 mEq/L (3.5-5.1); Protein, Total 6.5 g/dL (6.4-8.2)
[2024-05-19] MEDS ORDERED: POTASSIUM 25 MEQ EFFERV TAB ONE ×2 (13:34→16:32)
--- NOTE | 2024-05-19 14:12 | RAD REPORT ---
EXAMINATION: CT ABDOMEN AND PELVIS WITH CONTRAST CLINICAL INDICATION: Male, 78 years old.diarrhea, suprapubic pain TECHNIQUE: CT abdomen and pelvis was performed, after the administration of IV contrast, as per [facility] protocol. Axial, sagittal and coronal reconstructions were obtained. One or more of the following dose reduction techniques were used: Automated exposure control, adjustment of the mA and/o r kV according to patient size, and/or iterative reconstruction. Unless otherwise specified, incidental findings do not require dedicated imaging follow-up. [id number]. COMPARISON: CT 01/21/2023, CT abdomen and pelvis 06/01/2023 FINDINGS: LOWER CHEST: Nodules in lung bases bilaterally. The largest measures 17 mm in left lower lobe. The largest on the right side measures 8 mm.No significant pericardial effusion. UPPER GI: No significant abnormality. LIVER: No significant focal abnormality. GALLBLADDER/BILE DUCTS: No biliary ductal dilatation.? PANCREAS: No mass, ductal dilation, or vickie-pancreatic fluid. SPLEEN: Low-attenuation lesion in the spleen measuring 13 mm nonspecific. The spleen is enlarged kristin uring 17.4 cm. ADRENALS: New bilateral adrenal masses. On the left, mass measures 6.5 cm. On the right, the lesion m easures 2.4 cm. KIDNEYS AND URETERS: Large right renal lesions, the upper pole lesion measuring 13.5 cm and consisten t with a cyst. There is a second lesion which measures 10 cm that is likely a complex cyst but is unchanged ABDOMINAL AORTA AND OTHER VESSELS: Mild atherosclerotic changes. PERITONEUM: No abnormal free fluid. No free air. LYMPH NODES: New enlarged lymph node at the celiac axis measuring 2.5 cm. New enlarged retroperitonea l lymph node measuring 12 mm. ABDOMINAL WALL: Small fat-containing inguinal hernias. SMALL BOWEL/COLON: Small bowel has normal course and caliber. No colonic wall thickening or pericolon ic inflammatory changes. Moderate formed stool burden. URINARY BLADDER: Dense contents within the bladder may be from a previous contrast enhanced study or blood products. REPRODUCTIVE ORGANS: Postprocedural changes at the prostate. MUSCULOSKELETAL: New osseous metastatic disease at the T10 level. Remote L1 compression fracture. S1 is presumably lumbarized. ADDITIONAL FINDINGS: None. IMPRESSION: Interval development of metastatic disease including bilateral pulmonary nodules, bilateral adrenal m asses, mesenteric and retroperitoneal lymphadenopathy, and osseous metastatic disease. Possible splenic metastatic lesion as well. Source of the metastatic disease is uncertain on this exam. The pa tient has a personal history of lymphoma and possibly prostate cancer. The left adrenal mass would be the easiest location for biopsy under CT guidance if needed.
--- NOTE | 2024-05-19 16:58 | ER ---
Nurse's Notes [facility] Name: Salo Miller Age: 78 yrs Sex: Male : 1945 Arrival Date: 05/19/2024 Time: 10:44 Bed 7 Private MD: Diagnosis: Nausea with vomiting, unspecified;Diarrhea, unspecified;Hypokalemia Presentation: 05/19 11:05 Chief complaint: Patient's son or daughter states: he has diarrhea and vomiting this iw morning and he c/o lower abd pain. Coronavirus screen: At this time, the client does not indicate any symptoms associated with coronavirus-19. Ebola Screen: No symptoms or risks identified at this time. Initial Sepsis Screen: Does the patient meet any 2 criteria? No. Patient's initial sepsis screen is negative. Does the patient have a suspected source of infection? No. Patient's initial sepsis screen is negative. Risk Assessment: Do you want to hurt yourself or someone else? Patient reports no desire to harm self or others. Onset of symptoms was May 19, 2024. 11:05 Method Of Arrival: Ambulatory iw 11:05 Acuity: DAVIS 3 iw Historical: - Allergies: 11:09 PENICILLINS; iw - Home Meds: 11:18 Potassium Chloride Oral [Active]; DACARA 34832 UNITS [Active]; famotidine 20 mg Oral db tablet [Active]; magnesium oxide 400 mg magnesium Oral tablet daily [Active]; meloxicam 15 mg oral tablet TWICE A WEEK [Active]; rabeprazole 20 mg oral tablet, delayed release (enteric coated) [Active]; levothyroxine 75 mcg capsule daily [Active]; - PMHx: 11:18 Hypothyroidism; Hypertensive disorder; db 11:23 SKIN CANCER; Leukemia; db - Immunization history:: Adult Immunizations not immunized. - Infectious Disease History:: Denies. - Social history:: Smoking status: Patient denies any tobacco usage or history of. Screenin:58 [facility] ED Fall Risk Assessment (Adult) History of falling in the last 3 months, db including since admission No falls in past 3 months (0 pts) Confusion or Disorientation No (0 pts) Intoxicated or Sedated No (0 pts) Impaired Gait No (0 pts) Mobility Assist Device Used No (0 pt) Altered Elimination No (0 pt) Score/Fall Risk Level 0 - 2 = Low Risk Oriented to surroundings, Maintained a safe environment. Abuse screen: Denies threats or abuse. Denies injuries from another. Nutritional screening: No deficits noted. Tuberculosis screening: No symptoms or risk factors identified. Assessment: 11:16 Reassessment: Patient appears in no apparent distress at this time. Patient and/or db family updated on plan of care and expected duration. Pain level reassessed. 13:35 Reassessment: PT ASSISTED TO BEDSIDE COMMODE. DIARRHEA NOTED ALL OVER FLOOR. FLOOR db CLEANED. General: Appears in no apparent distress. comfortable, Behavior is calm, cooperative. Pain: Denies pain. GI: Abdomen is flat, non-distended, Reports diarrhea. 14:15 Reassessment: Patient appears in no apparent distress at this time. Patient and/or db family updated on plan of care and expected duration. Pain level reassessed. PT CHANGED. NOTED URINATED ON SELF DURING CT. SHEETS CHANGED. 14:43 Reassessment: Patient appears in no apparent distress at this time. Patient and/or db family updated on plan of care and expected duration. Pain level reassessed. PT ASSISTED TO BEDSIDE COMMODE. 16:54 Reassessment: CONTACTED PATIENT . PROVIDER GAVE PATIENT UPDATE. NOTIFIED PT IS db READY FOR DC AND NEEDS A RIDE HOME. 17:24 Reassessment: Patient appears in no apparent distress at this time. Patient and/or db family updated on plan of care and expected duration. Pain level reassessed. FAMILY PICKED PT UP. ASSISTED TO BEDSIDE COMMODE. Vital Signs: 11:08 BP 153 / 95; Pulse 90; Resp 19; Temp 98.2; Pulse Ox 99% on R/A; iw 11:50 BP 149 / 92; Pulse 81; Resp 16; Pulse Ox 95% on R/A; db 14:33 BP 155 / 81; Pulse 64; Resp 15; Pulse Ox 100% ; jl7 ED Course: 10:48 Patient arrived in ED. mr 10:48 Cedric Medina PA is PHCP. cp 10:48 Cedric Montague MD is Attending Physician. cp 11:08 Triage completed. iw 11:10 Arm band placed on. iw 11:14 Vickie Graves, RN is Primary Nurse. db 11:24 Patient has correct armband on for positive identification. Bed in low position. Call db light in reach. Side rails up X 1. 11:40 Missed attempt(s): 20 gauge in right antecubital area. Bleeding controlled, band aid db applied, catheter tip intact. 11:48 Initial lab(s) drawn, by me, sent to lab. Urine collected: clean catch specimen. db Inserted saline lock: 22 gauge in right antecubital area, using aseptic technique. Blood collected. Flushed with 10 mL NS. 13:[address] db 13:49 Abdomen In Process Unspecified. EDMS 16:00 Provided Education on:. Pulse ox on. NIBP on. Warm blanket given. Pillow given. db 17:23 No provider procedures requiring assistance completed. IV discontinued, intact, db bleeding controlled, No redness/swelling at site. 17:24 Provided Education on: DISCHARGE AND FOLLOWUP. db Administered Medications: 11:50 Drug: NS 0.9% IV 500 ml 500 ml IV at 1 bolus once; to be given as a bolus over 60 db minutes Volume: 500 ml; Route: IV; Rate: 1 bolus; Site: right antecubital; 13:55 Follow up: Response: No adverse reaction; IV Status: Completed infusion; IV Intake: db 500ml 14:00 Drug: Potassium PO Effervescent Tablet 50 mEq PO once; dissolve in 4 ounces of water or db juice Route: PO; 14:29 Follow up: Response: No adverse reaction db 16:38 Drug: Potassium PO Effervescent Tablet 25 mEq PO once; dissolve in 4 ounces of water or db juice Route: PO; 17:00 Follow up: Response: No adverse reaction db Medication: 11:58 VIS not applicable for this client. db Intake: 13:55 IV: 500ml; Total: 500ml. db Outcome: 16:57 Discharge ordered by . cp 17:23 Discharged to home via wheelchair, with family, db 17:23 Condition: stable 17:23 Discharge instructions given to patient, family, Instructed on discharge instructions, follow up and referral plans. Prescriptions given X 1, 17:26 Patient left the ED. db Signatures: Dispatcher [employer] [facility] Sangita Miramontes, Reg Reg Lilia Valreio RN RN iw Cedric Medina PA PA Isela Petit RN RN jl7 Vickie Graves RN RN db Corrections: (The following items were deleted from the chart) 13:18 13:05 In radiology for Abdomen Pelvis W Con+CT.RAD.ALBERTOZ. EDMS EDMS 17:26 11:16 Reassessment: Patient appears in no apparent distress at this time. Patient db and/or family updated on plan of care and expected duration. Pain level reassessed. Patient is alert, oriented x 3, equal unlabored respirations, skin warm/dry/pink. db 17: 14:43 Reassessment: Patient appears in no apparent distress at this time. Patient db and/or family updated on plan of care and expected duration. Pain level reassessed. Patient is alert, oriented x 3, equal unlabored respirations, skin warm/dry/pink. PT ASSISTED TO BEDSIDE COMMODE. db 17: 14:15 Reassessment: Patient appears in no apparent distress at this time. Patient db and/or family updated on plan of care and expected duration. Pain level reassessed. Patient is alert, oriented x 3, equal unlabored respirations, skin warm/dry/pink. PT CHANGED. NOTED URINATED ON SELF DURING CT. SHEETS CHANGED db
--- NOTE | 2024-05-19 16:58 | EDPHYS ---
Physician Documentation [facility] Name: Salo Miller Age: 78 yrs Sex: Male : 1945 Arrival Date: 05/19/2024 Time: 10:44 Bed 7 Private MD: KENNA Physician Cedric Montague HPI: 05/19 11:20 This 78 yrs old Male presents to ER via Ambulatory with complaints of Diarrhea. cp 11:20 The patient presents to the emergency department with diarrhea, that is intermittent. cp Onset: The symptoms/episode began/occurred last night. 11:20 Possible causes: unknown. Associated signs and symptoms: Pertinent positives: abdominal cp pain, Pertinent negatives: constipation, fever, GI bleeding, active vomiting. Severity of symptoms: in the emergency department the symptoms are unchanged despite home interventions. Historical: - Allergies: 11: PENICILLINS; iw - Home Meds: 11:18 Potassium Chloride Oral [Active]; DACARA 61482 UNITS [Active]; famotidine 20 mg Oral db tablet [Active]; magnesium oxide 400 mg magnesium Oral tablet daily [Active]; meloxicam 15 mg oral tablet TWICE A WEEK [Active]; rabeprazole 20 mg oral tablet, delayed release (enteric coated) [Active]; levothyroxine 75 mcg capsule daily [Active]; - PMHx: 11:18 Hypothyroidism; Hypertensive disorder; db 11:23 SKIN CANCER; Leukemia; db - Immunization history:: Adult Immunizations not immunized. - Infectious Disease History:: Denies. - Social history:: Smoking status: Patient denies any tobacco usage or history of. ROS: 11:25 Constitutional: Negative for body aches, chills, fever, cp 11:25 Eyes: Negative for injury, pain, redness, and discharge, cp 11:25 ENT: Negative for drainage from ear(s), ear pain, sore throat, difficulty swallowing, difficulty handling secretions, 11:25 Cardiovascular: Negative for chest pain, edema, palpitations, 11:25 Respiratory: Negative for cough, shortness of breath, wheezing, 11:25 Abdomen/GI: Positive for abdominal pain, nausea and vomiting, diarrhea, Negative for constipation, black/tarry stool, rectal bleeding, 11:25 Neuro: Negative for altered mental status, 11:25 All other systems are negative, Exam: 11:30 Constitutional: The patient appears in no acute distress, alert, awake, non-toxic, well cp developed, thin 11:30 Head/Face: Normocephalic, atraumatic. cp 11:30 Eyes: Periorbital structures: appear normal, Conjunctiva: normal, no exudate, no injection, Sclera: no appreciated abnormality, Lids and lashes: appear normal, bilaterally, 11:30 ENT: External ear(s): are unremarkable, Nose: is normal, Mouth: Lips: dry, Oral mucosa: moist, Posterior pharynx: Airway: no evidence of obstruction, patent, 11:30 Chest/axilla: Inspection: normal, 11:30 Cardiovascular: Rate: normal, 11:30 Respiratory: the patient does not display signs of respiratory distress, Respirations: normal, no use of accessory muscles, no retractions, labored breathing, is not present, Breath sounds: are clear throughout, no decreased breath sounds, no stridor, no wheezing, 11:30 Abdomen/GI: Inspection: abdomen appears normal, Bowel sounds: active, all quadrants, Palpation: soft, in all quadrants, mild abdominal tenderness, in all quadrants, 11:30 Back: CVA tenderness, is absent, 11:30 Neuro: Orientation: no acute changes, per family, Mentation: able to follow commands, Motor: moves all fours, Vital Signs: 11:08 BP 153 / 95; Pulse 90; Resp 19; Temp 98.2; Pulse Ox 99% on R/A; iw 11:50 BP 149 / 92; Pulse 81; Resp 16; Pulse Ox 95% on R/A; db 14:33 BP 155 / 81; Pulse 64; Resp 15; Pulse Ox 100% ; jl7 MDM: 11:05 Medical Screening Exam initiated cp 16:56 Data reviewed: vital signs, nurses notes, lab test result(s), radiologic studies, CT cp scan, and as a result, I will discharge patient. 16:56 Differential diagnosis: gastritis, cholecystitis, pancreatitis, appendicitis, cp diverticulitis, viral gastroenteritis, gastroenteritis, bowel obstruction. I considered the following discharge prescriptions or medication management in the emergency department Medications were administered in the Emergency Department. See MAR. Counseling: I had a detailed discussion with the patient and/or guardian regarding the historical points, exam findings, and any diagnostic results supporting the discharge/admit diagnosis, lab results, radiology results, the need for outpatient follow up, oncology, to return to the emergency department if symptoms worsen or persist or if there are any questions or concerns that arise at home. 05/19 11:18 Order name: COVID-19 Ag + Flu A+B Ag; Complete Time: 12:37 cp 05/19 11:18 Order name: Urinalysis W/Microscopic; Complete Time: 12:37 cp 05/19 12:38 Interpretation: Normal except: [facility] Turbid; UPH 7.5. cp 05/19 11:18 Order name: CBC with Diff; Complete Time: 12:37 cp 05/19 12:38 Interpretation: Normal except: RBC 3.71; HGB 9.7; HCT 28.8; MCV 77.7; MCH 26.2; PLT cp 136; ERIC% 78.6; LYM% 9.6; LYMA 0.6. 05/19 11:18 Order name: CMP; Complete Time: 12:37 cp 05/19 12:39 Interpretation: Normal except: K 2.9; GLUC 129; BUN 24; GFR 73; ALT 15; CA 10.2; ALB cp 3.3; A/G 1.0. 05/19 11:18 Order name: Lipase; Complete Time: 12:37 cp 05/19 11:18 Order name: Magnesium; Complete Time: 12:37 cp 05/19 11:18 Order name: Lactate w/ 2H reflex if indic.; Complete Time: 12:37 cp 05/19 13:21 Order name: Abdomen ; Complete Time: 15:06 EDMS 05/19 11:18 Order name: IV Saline Lock; Complete Time: 12:01 cp 05/19 11:18 Order name: Labs collected and sent; Complete Time: 12:02 cp Administered Medications: 11:50 Drug: NS 0.9% IV 500 ml 500 ml IV at 1 bolus once; to be given as a bolus over 60 db minutes Volume: 500 ml; Route: IV; Rate: 1 bolus; Site: right antecubital; 13:55 Follow up: Response: No adverse reaction; IV Status: Completed infusion; IV Intake: db 500ml 14:00 Drug: Potassium PO Effervescent Tablet 50 mEq PO once; dissolve in 4 ounces of water or db juice Route: PO; 14:29 Follow up: Response: No adverse reaction db 16:38 Drug: Potassium PO Effervescent Tablet 25 mEq PO once; dissolve in 4 ounces of water or db juice Route: PO; 17:00 Follow up: Response: No adverse reaction db Disposition Summary: 05/19/24 16:57 Discharge Ordered Notes: Location: Home cp Problem: new cp Symptoms: have improved cp Condition: Stable cp Diagnosis - Nausea with vomiting, unspecified cp - Diarrhea, unspecified cp - Hypokalemia cp Followup: cp - With: Private Physician - When: 2 - 3 days - Reason: Recheck today's complaints Discharge Instructions: - Discharge Summary Sheet cp - Food Choices to Help Relieve Diarrhea, Adult cp - Diarrhea, Adult cp - Potassium Content of Foods cp - Nausea and Vomiting, Adult cp - Hypokalemia cp Forms: - Medication Reconciliation Form cp - Antibiotic Education cp - Prescription Opioid Use cp - Patient Portal Instructions cp - Leadership Thank You Letter cp Prescriptions: - Zofran 4 mg Oral Tablet - take 1 tablet ORAL route every 12 hours As needed; 20 tablet; Refills: 0, cp Product Selection Permitted Signatures: Dispatcher [employer] Lilia Tate RN RN iw Cedric Medina PA PA cp Vickie Graves RN RN db Corrections: (The following items were deleted from the chart) 11:19 11:19 COVID-19 Ag + Flu A+B Ag+I.LAB.BRZ ordered. EDMS EDMS 11:19 11:19 Urinalysis W/Microscopic+U.LAB.BRZ ordered. EDMS EDMS 11:19 11:19 CBC+H.LAB.BRZ ordered. EDMS EDMS 11:19 11:19 COMPREHENSIVE METABOLIC PANEL+C.LAB.BRZ ordered. EDMS EDMS 11:19 11:19 LIPASE+C.LAB.BRZ ordered. EDMS EDMS 11:19 11:19 MAGNESIUM+C.LAB.BRZ ordered. EDMS EDMS 11:19 11:19 LACTATE+C.LAB.BRZ ordered. EDMS EDMS 13:18 11:20 Abdomen Pelvis W Con+CT.RAD.BRZ ordered. EDMS EDMS
[2024-05-19 17:45] VITALS: TEMP 98.2
[2024-05-19 17:51] VITALS: BP 155/81; O2SAT 100
== END 2024-05-19 17:26 | disposition home or self-care (01) ==
LOC: ER 10:44
DX: E87.6 Hypokalemia (principal); R19.7 Diarrhea, unspecified; Z11.52 Encounter for screening for COVID-19
CPT/HCPCS: 96361; 85025; 81001; 36415; 83735; 83605; 83690; 80053; 74177; 96360; 99285; 87428; Q9967; J7040

== ENCOUNTER 2024-05-28 09:46 | Day surgery (SDC) | payer OTHER ==
[2024-05-28 10:34] LABS: PT Prothrombin Time 13.8 SECONDS (10-13.0); PTT, Activated Partial Thromb 29.6 SECONDS (27.2-37.4); Protime INR 1.22
[2024-05-28] MEDS ORDERED: NA CHLORIDE 0.9% 1,000 ML ONE (10:48)
[2024-05-28] MEDS ORDERED: FLUMAZENIL 0.1 MG/ML (5 mL VIAL) IV ONE (11:02)
[2024-05-28] MEDS ORDERED: MIDAZOLAM HCL 2 MG/2 ML INJ ONE (11:03)
[2024-05-28] MEDS ORDERED: NALOXONE HCL 2 MG/2 ML VIAL ONE (11:03)
[2024-05-28] MEDS ORDERED: FENTANYL CITR 100 MCG/2 ML ONE (11:03)
[2024-05-28] MEDS ORDERED: HYDRALAZINE HCL 20 MG/ML VIAL ONE (11:37)
[2024-05-28 13:25] VITALS: BMI 23.8
--- NOTE | 2024-05-28 14:24 | RAD REPORT ---
EXAMINATION: Abdomen Rp Biopsy Percut INDICATION: ADRENAL MASS Pre-procedure diagnosis: Left adrenal mass Post-procedure diagnosis: Same as above. COMPARISON: CT abdomen and pelvis 05/19/2024 COMPLICATIONS: No immediate complications. PROCEDURE DETAILS: Consent: Informed consent for the procedure was obtained following discussion of the risks, benefits and alternatives with the patient. Time-out was performed prior to the procedure. Sedation: Moderate sedation (conscious sedation) Administered by: Nurse, with level of consciousness and vital signs continuously monitored. Total sedation administered: 1 mg Versed and 75 mcg Fentanyl. Total intra-service sedation time: 11 minutes. Biopsy: Appropriate timeout procedure was performed. The area was prepped and draped in the usual priscilla rile fashion. Initial scanning revealed bilateral basal pulmonary metastatic lesions, bilateral adrenal masses, and mass at the celiac axis level, stable findings since the prior exam. Dominant cys ts of the right kidney are again seen.. Local anesthesia was administered. Under CT guidance, an 18 gauge biopsy needle was advanced to the target and biopsy was performed. Number of specimens/passes: 4 Additional sampling description: Solid soft tissue cores. Preliminary assessment of sample adequacy: Adequate The biopsy needle was removed and a sterile dressing was applied. Post-biopsy imaging findings: No immediate complications seen. Additional Details: Estimated blood loss: Less than 10 mL. IMPRESSION: Technically successful CT-guided biopsy of the left adrenal mass.
[2024-05-28 15:04] VITALS: BP 131/72; TEMP 98; O2SAT 99
== END 2024-05-28 14:10 | disposition home or self-care (01) ==
LOC: DS 09:46
PROVIDERS: ATTEND Internal Medicine
PROC: 0GB23ZX Excision of Left Adrenal Gland, Percutaneous Approach, Diagnostic (ICD-10-PCS; principal; 2024-05-28)
DX: C85.19 Unspecified B-cell lymphoma, extranodal and solid organ sites (principal); E27.9 Disorder of adrenal gland, unspecified; C43.59 Malignant melanoma of other part of trunk; D69.6 Thrombocytopenia, unspecified; D72.818 Other decreased white blood cell count; D50.0 Iron deficiency anemia secondary to blood loss (chronic)
CPT/HCPCS: 36415; 85610; 88305; 85730; 49180; J0360; J2250; J3010; J7030; J2310

== ENCOUNTER 2024-05-31 23:54 | Inpatient (IN) | payer OTHER ==
[2024-06-01] MEDS ORDERED: NA CHLORIDE 0.9% 1,000 ML ONE (01:12)
[2024-06-01 01:31] LABS: Absolute Eosinophils 0.1 K/uL (0-0.5); Absolute Lymphocytes (CBC) 0.8 K/uL (0.7-4.9); Absolute Monocytes 0.4 K/uL (0.1-1.3); Absolute Neutrophil 3.9 K/uL (1.8-8.0); Basophils % 0.2 % (0-1.3); Eosinophils % 1.4 % (0-4.4); Hematocrit 30.1 % (39.6-49.0); Hemoglobin 10.1 g/dL (13.6-17.9); Lymphocytes % 14.8 % (15.3-44.8); MCH 25.9 pg (27.0-35.0); MCHC 33.5 g/dL (32.0-36.0); MCV 77.2 fL (80-100); MPV 7.9 fL (7.6-11.3); Monocytes % 7.7 % (3.3-12.3); Neutrophils % 75.9 % (41.7-73.7); Platelets 158 thou/uL (152-406); Red Cell Distribution Width 13.9 % (12.1-15.2)
[2024-06-01 01:42] LABS: PT Prothrombin Time 13.8 SECONDS (10-13.0); Protime INR 1.22
[2024-06-01 01:52] LABS: ALT/SGPT < 14 U/L (16-61); AST/SGOT 20 U/L (15-37); Albumin 3.5 g/dL (3.4-5.0); Alkaline Phosphatase 74 U/L (45-117); Anion Gap 7.8 mEq/L (5.0-15.0); BUN Blood Urea Nitrogen 18 mg/dL (7-18); Bicarbonate 30 mEq/L (21-32); Bilirubin Direct 0.2 mg/dL (0-0.2); Bilirubin Indirect, Calculated 0.4 mg/dL (0.2-0.8); Bilirubin Total 0.6 mg/dL (0.2-1.0); Globulin 3.6 g/dL (2.3-3.5); Glomerular Filtration Rate 59 ml/min (=/>90); Glucose Level 97 mg/dL (74-106); Magnesium 1.7 mg/dL (1.6-2.4); NT PRO-BNP 753 pg/mL (<450); Potassium 2.8 mEq/L (3.5-5.1); Protein, Total 7.1 g/dL (6.4-8.2); Sodium Level 137 mEq/L (136-145); Troponin High Sensitivity 9.9 pg/mL (<58.9)
--- NOTE | 2024-06-01 04:34 | ER ---
Nurse's Notes [facility] Name: Salo iMller Age: 78 yrs Sex: Male : 1945 Arrival Date: 05/31/2024 Time: 23:54 Bed 19 Private MD: Diagnosis: Muscle weakness (generalized);Acute generalized weakness, multiple falls at home, acute gait impairment, acute dizziness, impaired coordination Presentation: 06/01 00:06 Chief complaint: EMS states: Fall. Coronavirus screen: Client denies travel out of the [place] in the last 14 days. Ebola Screen: No symptoms or risks identified at this time. Initial Sepsis Screen: Does the patient meet any 2 criteria? No. Patient's initial sepsis screen is negative. Does the patient have a suspected source of infection? No. Patient's initial sepsis screen is negative. Risk Assessment: Do you want to hurt yourself or someone else? Patient reports no desire to harm self or others. Note BIBA with a c/o a fall on a carpeted floor. Pt reported hitting his head when going down but denies LOC. Pt stated he is on a blood thinning medication but does not remember which one. Pt is alert and oriented, denies CP, N/V but reports mild SOB. HX of bronchitis per pt report. No distress noted VSS. Onset of symptoms was May 31, 2024 at 23:00. 00:06 Method Of Arrival: EMS: [facility] ay 00:06 Acuity: DAVIS 3 ay Triage Assessment: 00:14 General: Appears in no apparent distress. comfortable, Behavior is calm, cooperative. ay Pain: Denies pain. EENT: No signs and/or symptoms were reported regarding the EENT system. Neuro: Level of Consciousness is awake, alert, obeys commands, Oriented to person, place, time, situation, Speech is normal. Cardiovascular: Denies chest pain, nausea, vomiting, Capillary refill < 3 seconds. Respiratory: Reports shortness of breath. GI: No signs and/or symptoms were reported involving the gastrointestinal system. : No signs and/or symptoms were reported regarding the genitourinary system. Derm: Skin has skin tears on right elbow. Musculoskeletal: weak. Historical: - Allergies: 00:14 PENICILLINS; ay - Home Meds: 00:14 DACARA 11767 units [Active]; famotidine 20 mg Oral tablet [Active]; levothyroxine 75 ay mcg cap daily [Active]; magnesium oxide 400 mg magnesium Oral tablet daily [Active]; meloxicam 15 mg Oral tablet twice a week [Active]; Potassium Chloride Oral [Active]; rabeprazole 20 mg Oral tablet [Active]; - PMHx: 00:14 Hypertensive disorder; Hypothyroidism; Leukemia; skin cancer; ay - Immunization history:: Client reports receiving the 2nd dose of the Covid vaccine, Flu vaccine is up to date. - Infectious Disease History:: Denies. - Social history:: Smoking status: Patient denies any tobacco usage or history of. Screenin:15 [facility] [place] ED Fall Risk Assessment (Adult) History of falling in the last 3 months, ay including since admission Yes- single mechanical fall (1 pt) Confusion or Disorientation No (0 pts) Intoxicated or Sedated No (0 pts) Impaired Gait Yes (1 pt) Mobility Assist Device Used Yes (1 pt) Altered Elimination No (0 pt) Score/Fall Risk Level 3 or more points = High Risk Oriented to surroundings, Maintained a safe environment, Educated pt \T\ family on fall prevention, incl call for assistance when getting out of bed, Assessed \T\ reinforced patient's understanding of fall precautions. Abuse screen: Denies threats or abuse. Nutritional screening: No deficits noted. Tuberculosis screening: No symptoms or risk factors identified. Assessment: 04:21 General: See Triage Assessment . ay 07:15 Reassessment: SEE [facility] FOR DOCUMENTATION. db Vital Signs: 00:00 BP 170 / 104; Pulse 96; Resp 19; Temp 98.5; Pulse Ox 100% on R/A; ay 01:30 BP 174 / 107; Pulse 102; Resp 16; Pulse Ox 98% on R/A; ay 06:04 BP 166 / 89; Pulse 106; Resp 17; Pulse Ox 98% on R/A; ay ED Course: 05/31 23:56 Patient arrived in ED. rv1 06/01 00:01 Antoine Jurado MD is Attending Physician. sp4 00:06 Cristina George, RN is Primary Nurse. ay 00:13 Triage completed. ay 00:15 Inserted saline lock: 22 gauge in left antecubital area, using aseptic technique. ay 00:48 EKG done, by gate technician. af3 01:09 CK Sent. ay 01:09 Blood Culture Adult (2) Sent. ay 01:09 Lactate w/ 2H reflex if indic. Sent. ay 01:09 CRP Sent. ay 01:09 Basic Metabolic Panel Sent. ay 01:10 CBC with Diff Sent. ay 01:10 LFT's Sent. ay 01:10 Magnesium Sent. ay 01:10 NT PRO-BNP Sent. ay 01:10 PT-INR Sent. ay 01:46 CT Head C Spine In Process Unspecified. EDMS 01:46 CT Chest Abdomen Pelvis W/O Contrast In Process Unspecified. EDMS 04:33 Bhavesh Guerrero MD is Hospitalizing Provider. sp4 07:15 No provider procedures requiring assistance completed. Patient admitted, IV remains in db place. 07:15 Patient has correct armband on for positive identification. Bed in low position. Call db light in reach. Side rails up X2. Provided Education on: ADMISSION. Client placed on continuous cardiac and pulse oximetry monitoring. NIBP monitoring applied. equipment monitor phototypesetting on. Pulse ox on. NIBP on. 17:35 Arm band placed on Patient placed. db Administered Medications: 01:10 Drug: NS 0.9% IV 1000 ml IV at 100 ml/hr Per protocol; to be given as a bolus over 60 ay minutes Route: IV; Rate: 100 ml/hr; Site: left forearm; 04:38 Follow up: IV Status: Completed infusion ay 04:38 Drug: HydrALAZINE PO 50 mg PO once Route: PO; ay 17:35 Follow up: Response: No adverse reaction db Medication: 07:15 VIS not applicable for this client. db Outcome: 04:34 Decision to Hospitalize by Provider. sp4 07:15 Admitted to ER Hold. Please see [facility] for further documentation. db 07:15 Condition: stable 07:15 Instructed on the need for admit, 17:35 Admitted to Med/surg accompanied by tech, room 212, Report called to OMAYRA db 17:58 Patient left the ED. db Signatures: Dispatcher [employer] Vickie Gunderson, RN RN Jasmin Monge Sergey, MD MD sp4 Bambi Salter af3 Cristina George, RN GEOVANY ay
--- NOTE | 2024-06-01 04:34 | EDPHYS ---
Physician Documentation [facility] Name: Salo Miller Age: 78 yrs Sex: Male : 1945 Arrival Date: 05/31/2024 Time: 23:54 Bed 19 Private MD: ED Physician Antoine Jurado HPI: 06/01 00:01 This 78 yrs old Male presents to ER via Unassigned with complaints of sp4 generalized weakness . Historical: - Allergies: 00:14 PENICILLINS; ay - Home Meds: 00:14 DACARA 07656 units [Active]; famotidine 20 mg Oral tablet [Active]; levothyroxine 75 ay mcg cap daily [Active]; magnesium oxide 400 mg magnesium Oral tablet daily [Active]; meloxicam 15 mg Oral tablet twice a week [Active]; Potassium Chloride Oral [Active]; rabeprazole 20 mg Oral tablet [Active]; - PMHx: 00:14 Hypertensive disorder; Hypothyroidism; Leukemia; skin cancer; ay - Immunization history:: Client reports receiving the 2nd dose of the Covid vaccine, Flu vaccine is up to date. - Infectious Disease History:: Denies. - Social history:: Smoking status: Patient denies any tobacco usage or history of. Vital Signs: 00:00 BP 170 / 104; Pulse 96; Resp 19; Temp 98.5; Pulse Ox 100% on R/A; ay 01:30 BP 174 / 107; Pulse 102; Resp 16; Pulse Ox 98% on R/A; ay 06:04 BP 166 / 89; Pulse 106; Resp 17; Pulse Ox 98% on R/A; ay MDM: 00:03 Medical Screening Exam initiated sp4 04:09 ED course: COMPARISON: CT head 05/03/2024 TECHNIQUE: CT images of the head and cervical sp4 spine were obtained without contrast. Multiplanar reformats were provided. Dose lowering techniques such as automated exposure control, iterative reconstruction, and mA and/or kV adjustment for patient size was utilized for this examination. FINDINGS: CT HEAD: PARENCHYMA: No acute arterial territory infarct or hemorrhage. No mass effect or midline shift. VENTRICLES: Normal in size for patient's age. EXTRA-AXIAL: No focal collection. Patent basilar cisterns. ORBITS: Unremarkable. BONES: No acute finding. PARANASAL SINUSES: Well aerated. MASTOIDS/MIDDLE EARS: Clear. SOFT TISSUES: No acute findings. OTHER: None. CT CERVICAL SPINE: Examination is degraded by motion. ALIGNMENT: Normal lordosis of the cervical spine. No spondylolisthesis. BONES: No acute fractures. No compression deformity. SPONDYLOSIS: Mild multilevel degenerative changes of the spine with disc space narrowing, marginal osteophytosis, and uncovertebral hypertrophy. POSTERIOR FOSSA: Unremarkable. SOFT TISSUES: Unremarkable. LUNG APICES: Refer to separately dictated CT chest. OTHER: None. IMPRESSION: 1. No acute intracranial abnormality. 2. No acute findings in the cervical spine. . 04:28 ED course: CT today - IMPRESSION: CT CHEST: 1. Again demonstrated are multiple sp4 bilateral pulmonary parenchymal nodules similar to the prior study concerning for metastatic disease. There appears to be partial cavitation of a nodule in the right left lower lobe. 2. Postsurgical changes in the left axilla. There is an approximately 4.1 x 1.8 x 4.4 cm fluid collection in the left axilla which may represent a postoperative seroma. 3. Mild wedge compression fracture of T10 which also demonstrate a prominent Schmorl's node along the superior endplate. There appear to be destructive changes involving the left transverse process of T10 concerning for metastatic disease. CTABDOMEN AND PELVIS: 1. 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 2. Soft tissue mass surrounding the celiac axis likely representing lymphadenopathy although evaluation is limited without IV contrast on this study. There is also an aortocaval lymph node as noted previously measuring approximately 1.2 cm in diameter. 3. Splenomegaly. 4. Large grossly stable right renal cysts. 5. There appear to be 6 lumbar type vertebral bodies. There is trace anterolisthesis of L5 relative to L6. 6. Chronic wedge compression fracture of L1. Electronically signed by: Chani Purvis DO 06/01/2024 04:09 AM. 06/01 00:02 Order name: Basic Metabolic Panel; Complete Time: 02:08 sp4 06/01 00:02 Order name: CBC with Diff; Complete Time: 02:08 sp4 06/01 00:02 Order name: LFT's; Complete Time: 02:08 sp4 06/01 00:02 Order name: Magnesium; Complete Time: 02:08 sp4 06/01 00:02 Order name: NT PRO-BNP; Complete Time: 02:08 sp4 06/01 00:02 Order name: PT-INR; Complete Time: 02:08 sp4 06/01 00:02 Order name: Troponin HS; Complete Time: 02:08 4 06/01 00:03 Order name: CRP; Complete Time: 02:08 4 06/01 00:10 Order name: Lactate w/ 2H reflex if indic.; Complete Time: 02:08 4 06/01 00:10 Order name: Blood Culture Adult (2) sp4 06/01 00:10 Order name: CK; Complete Time: 02:08 sp4 06/01 05:28 Order name: Urinalysis w/ reflexes EDMS 06/01 05:28 Order name: CBC with Automated Diff EDMS 06/01 05:28 Order name: CBC with Automated Diff EDMS 06/01 05:28 Order name: Comprehensive Metabolic Panel EDMS 06/01 05:28 Order name: Comprehensive Metabolic Panel EDMS 06/01 00:09 Order name: CT Head C Spine 4 06/01 00:09 Order name: CT Chest Abdomen Pelvis W/O Contrast sp4 06/01 00:02 Order name: EKG; Complete Time: 00:03 sp4 06/01 00:02 Order name: Cardiac monitoring; Complete Time: 00:48 4 06/01 00:02 Order name: EKG - Nurse/Tech; Complete Time: 00:48 sp4 06/01 00:02 Order name: IV Saline Lock; Complete Time: 01:09 4 06/01 00:02 Order name: Labs collected and sent; Complete Time: 01:09 4 06/01 00:02 Order name: O2 Per Protocol; Complete Time: 00:48 sp4 06/01 00:02 Order name: O2 Sat Monitoring; Complete Time: 00:48 sp4 Administered Medications: 01:10 Drug: NS 0.9% IV 1000 ml IV at 100 ml/hr Per protocol; to be given as a bolus over 60 ay minutes Route: IV; Rate: 100 ml/hr; Site: left forearm; 04:38 Follow up: IV Status: Completed infusion ay 04:38 Drug: HydrALAZINE PO 50 mg PO once Route: PO; ay 17:35 Follow up: Response: No adverse reaction db Disposition Summary: 06/01/24 04:34 Hospitalization Ordered Notes: Hospitalization Status: Inpatient Admission sp4 Provider: Bhavesh Guerrero sp4 Condition: Stable sp4 Problem: new sp4 Symptoms: have improved sp4 Bed/Room Type: Standard sp4 Location: Telemetry/MedSurg (Inpatient)(06/01/24 16:44) hb Room Assignment: 212(06/01/24 16:44) hb Diagnosis - Muscle weakness (generalized) sp4 - Acute generalized weakness, multiple falls at home, acute gait impairment, acute sp4 dizziness, impaired coordination Forms: - Medication Reconciliation Form sp4 - SBAR form sp4 - Leadership Thank You Letter sp4 Addendum: 06/02/2024 19:11 Addendum: EKG 06/01/2024 at 0045 sinus tachycardia with PACs, right bundle branch s p4 block, no ST elevation or depression, otherwise no ventricular ectopy, otherwise normal intervals. No sign of acute ischemic changes. Sinus tachycardia rate 103.. 19:13 Addendum: Physical examination reveals frail elderly male, no acute distress, . s p4 19:16 Addendum: Exam - Constitutional: Elderly patient who is awake, alert, sp4 and in no s p4 acute distress. Head/Face: Normocephalic, atraumatic. Eyes: Pupils equal round and reactive to light, extra-ocular motions intact. Lids and lashes normal. Conjunctiva and sclera are not injected. Cornea within normal limits. Periorbital areas with no swelling, redness, or edema. ENT: Nares patent. No nasal discharge, no septal abnormalities noted. Tympanic membranes are normal and external auditory canals are clear. Oropharynx with no redness, swelling, or masses, exudates, or evidence of obstruction, uvula midline. Mucous membranes moist. Neck: Trachea midline, no thyromegaly or masses palpated, and no cervical lymphadenopathy. Supple, full range of motion without nuchal rigidity, or vertebral point tenderness. Chest/axilla: Normal chest wall appearance and motion. Nontender with no deformity. No lesions are appreciated. Cardiovascular: Regular rate and rhythm with a normal S1 and S2. No gallops, murmurs, or rubs. Normal PMI, no JVD. No pulse deficits. Respiratory: Lungs have equal breath sounds bilaterally, clear to auscultation and percussion. No rales, rhonchi or wheezes noted. No increased work of breathing, no retractions or nasal flaring. Abdomen/GI: Soft, with normal bowel sounds. No distension or tympany. No guarding or rebound. No evidence of tenderness throughout. Back: No spinal tenderness. No costovertebral tenderness. Skin: Warm, dry with normal turgor. Normal color with no rashes, no lesions, and no evidence of cellulitis. MS/ Extremity: Pulses equal, no cyanosis. Neurovascular intact. Full, normal range of motion. Neuro: Awake and alert, GCS 15, oriented to person, place, time, and situation. Cranial nerves II-XII grossly intact. Motor strength 5/5 in all extremities. Sensory grossly intact. Psych: Awake, alert, with orientation to person, place and time. Behavior, mood, and affect are within normal limits . Signatures: Dispatcher [employer] EDMS Danielle Cyr, GEOVANY ARMENTA Jasmin Hinton rv1 Antoine Jurado MD MD sp4 Cristina George RN RN ay Benton, Danielle RN db Corrections: (The following items were deleted from the chart) 06/01 00:03 00:03 BASIC METABOLIC PANEL+C.LAB.BRZ ordered. EDMS EDMS 00:03 00:03 CBC+H.LAB.BRZ ordered. EDMS EDMS 00:03 00:03 HEPATIC FUNCTION+C.LAB.BRZ ordered. EDMS EDMS 00:03 00:03 MAGNESIUM+C.LAB.BRZ ordered. EDMS EDMS 00:03 00:03 PROBNP+C.LAB.BRZ ordered. EDMS EDMS 00:03 00:03 PROTIME (+INR)+COAG.LAB.BRZ ordered. EDMS EDMS 00:03 00:03 Troponin High Sensitivity+C.LAB.BRZ ordered. EDAR EDMS 06:54 04:34 Telemetry/MedSurg (Inpatient) sp4 rv1 06:54 04:34 sp4 rv1 16:44 06:54 BR ER HOLD rv1 hb 16:44 06:54 ERHOLD- rv1 hb
[2024-06-01] MEDS ORDERED: HYDRALAZINE HCL 25 MG TABLET ONE (04:35)
--- NOTE | 2024-06-01 05:18 | P.HP ---
Certification for Inpatient Patient admitted to: Inpatient With expected LOS: >2 Midnights Practitioner: I am a practitioner with admitting privileges, knowledge of patient current condition, hospital course, and medical plan of care. Services: Services provided to patient in accordance with Admission requirements found in Title 42 Section 412.3 of the Code of Federal Regulations Patient History Date of Service: 06/01/24 Reason for admission: Generalized weakness History of Present Illness: 78-year-old male with past medical history hypertension, hyperlipidemia, hypothyroidism, leukemia, skin cancer given with generalized weakness and fatigue-has multiple falls. Patient has had history of metastatic cancer followed by Dr. Naqvi and has been getting chemotherapy. Patient denies any fever or chills. No nausea vomiting diarrhea. No sick contacts. Denies any chest pain or shortness of breath. Patient was assessed in the ER and was admitted for further management of hypokalemia and hyperglycemia and because of multiple falls Allergies Penicillins Allergy (Verified 05/31/23 08:37) Hives/Rash Home medications list reviewed: Yes Home Medications: Atenolol/Chlorthalidone [Atenolol-Chlorthalidone 100-25] 1 tab PO DAILY 04/25/23 Famotidine 20 mg PO BEDTIME 04/25/23 Hydrocodone Bit/Acetaminophen [Hydrocodon-Acetaminoph 7.5-325] 1 tab PO DAILY PRN 04/25/23 Levothyroxine Sodium 75 mcg PO DAILY 04/25/23 Mag Oxide/D3/Turmeric Rt Xt [Magnesium-Vit D3-Turmeric Tab] 1 each PO BEDTIME 04/25/23 Meloxicam 15 mg PO DAILY 04/25/23 Potassium Chloride [Klor-Con M20] 1 tab PO BID 04/25/23 Rabeprazole Sodium 20 mg PO DAILY 04/25/23 Sucralfate [Carafate*] 1 gm PO ACHS 04/25/23 Tamsulosin [Flomax*] 0.4 mg PO BEDTIME 04/25/23 methocarbamoL [Robaxin*] 750 mg PO DAILY 04/25/23 Codeine/APAP [Tylenol #3*] 1 tab PO Q6H PRN #12 tab 05/31/23 diazePAM [Valium] 5 mg PO BID PRN #6 tab 06/03/23 oxyBUTYnin chloride [Ditropan Xl*] 10 mg PO DAILY #14 tab.sa 06/03/23 - Past Medical/Surgical History Diabetic: No Past Medical History: Reviewed- Non-Contributory Past Surgical History: Reviewed- Non-Contributory - Family History Family History: Reviewed- Non-Contributory - Family History Father -: Kidney disease Notes: Kidney failure - Social History Smoking Status: Never smoker Alcohol use: No CD- Drugs: Yes Review of Systems 10-point ROS is otherwise unremarkable Physical Examination - Vital Signs Temperature: 97.9 F Blood Pressure: 134/60 Pulse: 72 Respirations: 18 Pulse Ox (%): 94 - Physical Exam General: Alert, Oriented x3 HEENT: Atraumatic, Normocephalic Neck: Supple Respiratory: Clear to auscultation bilaterally, Normal air movement Cardiovascular: Regular rate/rhythm, Normal S1 S2 Capillary refill: <2 Seconds Gastrointestinal: Soft and benign, W/out hepatosplenomegaly Musculoskeletal: No clubbing, No swelling Integumentary: No rashes, Other (Abrasions) Neurological: Other (Alert awake nonfocal) Lymphatics: No axilla or inguinal lymphadenopathy - Studies Laboratory Data (last 24 hrs) 06/01/24 06/01/24 06/01/24 00:55 00:55 00:55 WBC 5.20 Hgb 10.1 L Hct 30.1 L Plt Count 158 PT 13.8 H INR 1.22 Sodium 137 Potassium 2.8 L BUN 18 Creatinine 1.24 Glucose 97 Magnesium 1.7 Total Bilirubin 0.6 AST 20 ALT < 14 L Alkaline Phosphatase 74 Assessment and Plan - Plan Generalized weakness Multiple falls Monitor closely on telemetry PT eval Hypokalemia Hypercalcemia IV hydration Electrolytes monitor and replace accordingly Hypertension Antihypertensives titrated Continue home medications and titrate as needed Hyperlipidemia Continue statin Anemia of chronic disease Monitor H&H closely No overt bleeding at this time History of metastatic cancer Monitor closely Hematology consult or outpatient follow-up GI/DVT prophylaxis Advanced directive full code Discharge Plan: Home Plan to discharge in: 48 Hours - Advance Directives Does patient have a Living Will: No Does patient have a Durable POA for Healthcare: No - Code Status/Comfort Care Code Status: Full Code Time Spent Managing Pts Care (In Minutes): 54
[2024-06-01] MEDS ORDERED: ACETAMINOPHEN 325 MG TABLET PO PRN (05:23)
--- NOTE | 2024-06-01 05:25 | RAD REPORT ---
EXAM: 1. CT scan of the CHEST without intravenous contrast. 2. CT scan of the ABDOMEN AND PELVIS without intravenous contrast CLINICAL DATA: 78 years Male falls at home. TECHNICAL DATA: CT imaging of the chest, abdomen and pelvis without intravenous contrast administration. Sagittal and coronal reconstructed images were performed. The CT study is performed according to ALARA (as low as reasonably achievable) or ALARA/IMAGE GENTLY, with automatic adjustment of mA and/or kV according to patient size. Performed on: 06/01/2024 at 1:54 AM Comparisons: CT abdomen and pelvis performed on 05/19/[address] chest performed on 05/18/2024. FINDINGS: CHEST: Lungs: The lungs are well expanded. Again demonstrated are multiple bilateral pulmonary parenchymal n odules similar to the prior study concerning for metastatic disease. There appears to be partial cavitation of a nodule in the right left lower lobe. There are no pleural effusions. There is no pneu mothorax. The central airways are patent. Heart: The heart is normal in size. There is no pericardial effusion. Mediastinum: The mediastinum is unremarkable. The mediastinal vessels are normal in caliber and con tour. There are very mild atherosclerotic calcifications along the thoracic aorta. Bones: No acute osseous abnormalities are identified. The sternum is intact. No definite acute rib fr acture is identified. There is a mild wedge compression fracture of T10 which also demonstrate a prominent Schmorl's node along the superior endplate. There appear to be destructive changes involvin g the left transverse process of T10 concerning for metastatic involvement. There is a small Schmorl's node along the inferior endplate of T9 and superior endplate of T11. Soft tissues: There are postsurgical changes in the left axilla. There is an approximately 4.1 x 1.8 x 4.4 cm fluid collection in the left axilla which may represent a postoperative seroma. Lymphadenopathy: No pathologic hilar, mediastinal or axillary lymphadenopathy is identified. ABDOMEN/PELVIS: Liver: The liver is normal in size and configuration. No focal hepatic abnormalities are identified. Liver attenuation is within normal limits. Spleen: The spleen is enlarged and measures approximately 15.5 cm in craniocaudal dimension. No defin ite focal splenic abnormalities are identified. Gallbladder and bile duct: The gallbladder is well distended and unremarkable. There is no biliary ductal dilatation. Pancreas: The pancreas is grossly normal in size and configuration. 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 Kidneys: There are large right renal cysts arising from the upper and lower pole of the right kidney. The right lower pole renal cyst demonstrate segmental wall calcification. The upper pole cyst measures approximately 12.3 cm in craniocaudal dimension. The lower pole cyst measures approximately 8.5 cm in craniocaudal dimension. There is no evidence of hydronephrosis. There is no evidence of paradise nephrolithiasis. Stomach: The stomach is grossly normal. There is no definite hiatal hernia. Bowel: The bowel gas pattern is non specific and non obstructive. Appendix: There is no CT evidence of acute appendicitis. Free air: There is no evidence of free air. Free fluid: There is no evidence of free fluid. Vasculature: The aorta is normal in caliber and contour. There are mild to moderate atherosclerotic c alcifications along the abdominal aorta. The inferior vena cava is grossly unremarkable. Lymphadenopathy: Again demonstrated is a soft tissue mass surrounding the celiac axis likely represen ting lymphadenopathy although evaluation is limited without IV contrast on this study. This measures approximately 2.2 cm in diameter. There is also an aortocaval lymph node as noted previously measuring approximately 1.2 cm in diameter. Bladder: The bladder is well distended and smooth in contour. Reproductive: The prostate gland contains brachytherapy seeds. Bones: There appear to be 6 lumbar type vertebral bodies. There is trace anterolisthesis of L5 relati ve to L6. There is a chronic wedge compression fracture of the L1 vertebral body. This was noted on the prior study from 03/23/2022. No acute osseous abnormalities are identified. Soft tissues: No focal soft tissue abnormalities are identified. There are small bilateral fat-contai dorothy inguinal hernias IMPRESSION: CT CHEST: 1. Again demonstrated are multiple bilateral pulmonary parenchymal nodules similar to the prior jose dy concerning for metastatic disease. There appears to be partial cavitation of a nodule in the right left lower lobe. 2. Postsurgical changes in the left axilla. There is an approximately 4.1 x 1.8 x 4.4 cm fluid janene ection in the left axilla which may represent a postoperative seroma. 3. Mild wedge compression fracture of T10 which also demonstrate a prominent Schmorl's node along t he superior endplate. There appear to be destructive changes involving the left transverse process of T10 concerning for metastatic disease. CT ABDOMEN AND PELVIS: 1. 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 2. Soft tissue mass surrounding the celiac axis likely representing lymphadenopathy although evalua tion is limited without IV contrast on this study. There is also an aortocaval lymph node as noted previously measuring approximately 1.2 cm in diameter. 3. Splenomegaly. 4. Large grossly stable right renal cysts. 5. There appear to be 6 lumbar type vertebral bodies. There is trace anterolisthesis of L5 relative to L6. 6. Chronic wedge compression fracture of L1. Electronically signed by: Chani Purvis DO 06/01/2024 04:09 AM CDT Due to temporary technical issues with the PACS/Tunespeak reporting system, reports are being ce d by the in-house radiologist without review as a courtesy to ensure prompt reporting the interpreting radiologist is fully responsible for the content of the report. Transcribed Date/Time: 06/01/2024 5:24 AM
--- NOTE | 2024-06-01 05:25 | RAD REPORT ---
CT HEAD AND CERVICAL SPINE WITHOUT CONTRAST INDICATION: Dizziness. COMPARISON: CT head 05/03/2024 TECHNIQUE: CT images of the head and cervical spine were obtained without contrast. Multiplanar refor mats were provided. Dose lowering techniques such as automated exposure control, iterative reconstruction, and mA and/or kV adjustment for patient size was utilized for this examination. FINDINGS: CT HEAD: PARENCHYMA: No acute arterial territory infarct or hemorrhage. No mass effect or midline shift. VENTRICLES: Normal in size for patient's age. EXTRA-AXIAL: No focal collection. Patent basilar cisterns. ORBITS: Unremarkable. BONES: No acute finding. PARANASAL SINUSES: Well aerated. MASTOIDS/MIDDLE EARS: Clear. SOFT TISSUES: No acute findings. OTHER: None. CT CERVICAL SPINE: Examination is degraded by motion. ALIGNMENT: Normal lordosis of the cervical spine. No spondylolisthesis. BONES: No acute fractures. No compression deformity. SPONDYLOSIS: Mild multilevel degenerative changes of the spine with disc space narrowing, marginal os teophytosis, and uncovertebral hypertrophy. POSTERIOR FOSSA: Unremarkable. SOFT TISSUES: Unremarkable. LUNG APICES: Refer to separately dictated CT chest. OTHER: None. IMPRESSION: 1. No acute intracranial abnormality. 2. No acute findings in the cervical spine. Electronically signed by: Michelle Moses MD 06/01/2024 03:45 AM CDT Due to temporary technical issues with the PACS/Minderest reporting system, reports are being ce d by the in-house radiologist without review as a courtesy to ensure prompt reporting the interpreting radiologist is fully responsible for the content of the report. Transcribed Date/Time: 06/01/2024 5:24 AM
[2024-06-01] MEDS ORDERED: MORPHINE 2 MG/ML SYR IV PRN (05:26)
[2024-06-01] MEDS: NS KCL 40MEQ 40 MEQ/1,000 ML BAG IV SCH (06:00)
[2024-06-01 06:27] VITALS: BMI 23.8
[2024-06-01] MEDS: NA CHLORIDE 0.9% 1,000 ML with POTASSIUM CL 40 MEQ IV SCH (08:00)
[2024-06-01] MEDS: ENOXAPARIN 40 MG/0.4 ML SQ SCH (09:00)
[2024-06-01] MEDS ORDERED: ENOXAPARIN 40 MG/0.4 ML SQ ONE (10:37)
[2024-06-01 11:49] LABS: Specific Gravity 1.009 (1.005-1.030); Urine Bilirubin NEGATIVE (Negative); Urine Blood Negative (Negative); Urine Clarity Clear (Clear); Urine Color Colorless (Yellow); Urine Glucose NEGATIVE (Negative); Urine Ketones NEGATIVE (Negative); Urine Microscopic Reflex YN NO UMIC; Urine Nitrite NEGATIVE (Negative); Urine Protein NEGATIVE (Negative); Urine Urobilinogen Normal (Normal)
[2024-06-01] MEDS: PAMIDRONATE DISOD 30 MG VIAL IV ONE (16:35)
[2024-06-01] MEDS ORDERED: FUROSEMIDE 20 MG/ 2ML VIAL ONE (17:24)
[2024-06-01] MEDS: PAMIDRONATE 60 MG in NA CHLORIDE 0.9% 500 ML IV ONE (17:30)
[2024-06-01] MEDS: FUROSEMIDE 20 MG/ 2ML VIAL IV SCH (17:30)
[2024-06-01] MEDS: HYDRALAZINE HCL 20 MG/ML VIAL IV PRN (23:01)
[2024-06-02] MEDS: LABETALOL 20 MG/4ML SYRINGE IV PRN ×2 (03:45→17:21)
[2024-06-02] MEDS ORDERED: LABETALOL 20 MG/4ML SYRINGE IV SCH (04:00)
[2024-06-02 05:15] LABS: Absolute Eosinophils 0.1 K/uL (0-0.5); Absolute Lymphocytes (CBC) 0.8 K/uL (0.7-4.9); Absolute Monocytes 0.6 K/uL (0.1-1.3); Basophils % 0.3 % (0-1.3); Eosinophils % 1.2 % (0-4.4); Hematocrit 30.2 % (39.6-49.0); Hemoglobin 10.2 g/dL (13.6-17.9); Lymphocytes % 12.5 % (15.3-44.8); MCH 25.9 pg (27.0-35.0); MCHC 33.8 g/dL (32.0-36.0); MCV 76.5 fL (80-100); MPV 8.4 fL (7.6-11.3); Monocytes % 9.8 % (3.3-12.3); Neutrophils % 76.2 % (41.7-73.7); Platelets 150 thou/uL (152-406); RBC Red Blood Cell Count 3.95 M/uL (4.33-5.43); Red Cell Distribution Width 14.1 % (12.1-15.2)
[2024-06-02 05:52] LABS: AST/SGOT 17 U/L (15-37); Albumin 3.1 g/dL (3.4-5.0); Alkaline Phosphatase 65 U/L (45-117); Anion Gap 7.6 mEq/L (5.0-15.0); BUN Blood Urea Nitrogen 13 mg/dL (7-18); Bicarbonate 29 mEq/L (21-32); Bilirubin Total 0.6 mg/dL (0.2-1.0); Globulin 3.2 g/dL (2.3-3.5); Glomerular Filtration Rate 77 ml/min (=/>90); Glucose Level 112 mg/dL (74-106); Magnesium 1.6 mg/dL (1.6-2.4); Protein, Total 6.3 g/dL (6.4-8.2); Sodium Level 139 mEq/L (136-145)
[2024-06-02 06:26] LABS: ALT/SGPT < 14 U/L (16-61)
[2024-06-02 06:49] LABS: Potassium 2.6 mEq/L (3.5-5.1)
[2024-06-02] MEDS: MAGNESIUM SULFATE 1 gm IVPB 1 GM/100 ML BAG IV ONE (08:55)
[2024-06-02] MEDS: KCL 20 MEQ/100 mL IVPB 20 MEQ/100 ML BAG IV SCH ×2 (08:55→09:00)
[2024-06-02] MEDS: POTASSIUM 25 MEQ EFFERV TAB PO ONE (12:58)
[2024-06-02] MEDS: HYDROCODONE/APAP 5/325 MG TAB PO PRN (12:58)
[2024-06-02] MEDS: ONDANSETRON 4 MG/2 ML VIAL IV PRN (13:35)
[2024-06-02 21:53] LABS: Anion Gap 8.8 mEq/L (5.0-15.0); Potassium 3.8 mEq/L (3.5-5.1)
[2024-06-03] MEDS: POTASSIUM CL SA 10 MEQ TAB PO ONE ×2 (08:45→10:49)
[2024-06-03] MEDS ORDERED: MAGNESIUM SULFATE 1 gm IVPB 1 GM/100 ML BAG IV ONE (09:00)
[2024-06-03 10:06] LABS: Anion Gap 9.9 mEq/L (5.0-15.0); Magnesium 1.6 mg/dL (1.6-2.4); Phosphorus 3.2 mg/dL (2.5-4.9); Potassium 3.9 mEq/L (3.5-5.1)
[2024-06-03] MEDS: MAGNESIUM SULFATE 1 gm IVPB 1 GM/100 ML BAG IV ONE (10:49)
--- NOTE | 2024-06-04 12:10 | EKG ---
Test Date: 2024-06-01 Test Time: 00:45:12 Assistant Spa Director: AF MEASUREMENT RESULTS: Intervals: Rate: 103 OH: 172 QRSD: 144 QT: 388 QTc: 508 [place]: P: 59 OH: 172 QRS: 69 T: 4 INTERPRETIVE STATEMENTS: Sinus tachycardia with premature atrial complexes Right bundle branch block Lateral infarct, age undetermined Inferior infarct, age undetermined Abnormal ECG Compared to ECG 06/01/2024 00:44:44 Atrial premature complex(es) now present Myocardial infarct finding still present Electronically Signed On 06-04-24 12:03:12 CDT by Christian Najera
[2024-06-04] MEDS: AMLODIPINE 5 MG TAB PO ONE (18:00)
[2024-06-04] MEDS: METOPROLOL TAR 25 MG TAB PO SCH (18:00)
[2024-06-04] MEDS: METOPROLOL TARTRATE 5 MG/5 ML INJ IV STA (18:03)
[2024-06-04] MEDS: ENSURE ENLIVE 237 ML CAN PO SCH (20:55)
[2024-06-05] MEDS ORDERED: LABETALOL 20 MG/4ML SYRINGE IV PRN (05:34)
--- NOTE | 2024-06-05 05:41 | P.PN ---
Subjective Date of Service: 06/02/24 Patient is clinically improving. He still is really weak and we will going to get physical therapy to work with him. Patient with a lot of deconditioning and electrolyte abnormalities. Encouraging the nurse to get him out of bed and to the chair. Patient was given pamidronate for his hypercalcemia secondary to malignancy. Patient with cancer and unable to get treatment. Long-term prognosis is poor as patient is very deconditioned and at this point does not have the performance status to have any aggressive intervention. Review of Systems 10-point ROS is otherwise unremarkable Physical Examination - Vital Signs Temperature: 97.8 F Blood Pressure: 164/91 Pulse: 94 Respirations: 17 Pulse Ox (%): 95 - Physical Exam General: Alert, In no apparent distress, Oriented x3, Cachectic HEENT: Atraumatic, PERRLA, EOMI Neck: Supple, JVD not distended Respiratory: Diminished, Rhonchi/gurgles Cardiovascular: Regular rate/rhythm, Normal S1 S2, Systolic murmur Gastrointestinal: Normal bowel sounds, Soft and benign, Non-distended, No tenderness Musculoskeletal: No clubbing, No swelling, No tenderness Neurological: Sensation intact, Cranial nerves 3-12 intact, Abnormal gait, Abnormal strength - Studies Medications List Reviewed: Yes Assessment & Plan - Problems (Diagnosis) (1) Metastatic malignant neoplasm of unknown primary site Current Visit: Yes Status: Acute (2) Cachexia Current Visit: Yes Status: Acute (3) Hypercalcemia of malignancy Current Visit: Yes Status: Acute (4) Hypokalemia Current Visit: Yes Status: Acute (5) Anemia, chronic disease Current Visit: Yes Status: Acute - Plan Plan: 1. Metastatic cancer of unknown primary; biopsy performed on May 28 at the hospital here; patient had a fine-needle aspiration of the adrenals. Pathology pending. Prognosis is poor. Performance status is poor. Patient not able to tolerate any aggressive intervention at this time so we will need outpatient therapy prior to any intervention. 2. Hypercalcemia of malignancy; status post pamidronate; continue monitoring calcium level and may need calcitonin at discharge 3. Cachexia and emaciated with muscular atrophy; continue with physical therapy and nutritional support. Patient cachexia most likely secondary to cancer and will continue with supportive care 4. Hypertension; resume antihypertensives 5. Hypokalemia; monitor electrolytes closely 6. Anemia of chronic disease; monitor H&H 7. GI DVT prophylaxis Discharge Plan: Residential Plan to discharge in: Greater than 2 days - Advance Directives Does patient have a Living Will: No Does patient have a Durable POA for Healthcare: No - Code Status/Comfort Care Code Status: Full Code Critical Care: No Time Spent Managing PTS Care (In Minutes): 35
--- NOTE | 2024-06-05 05:46 | P.PN ---
Date of Service: 06/03/24 Subjective Patient is doing a little bit better. Spoke to family at bedside and patient is really weak and they want correction placement. Will speak to social human services assistants regarding this in AM. Continue with physical therapy at this time. Calcium is stable. Monitor potassium. Physical Examination - Vital Signs Reviewed - Physical Exam General: Alert, In no apparent distress, Oriented x3, Cachectic Respiratory: Diminished, Rhonchi/gurgles Cardiovascular: Regular rate/rhythm, Normal S1 S2, Systolic murmur Gastrointestinal: Normal bowel sounds, Soft and benign, Non-distended, No tenderness Musculoskeletal: No clubbing, No swelling, No tenderness Neurological: Abnormal gait, Abnormal strength Assessment & Plan - Problems (Diagnosis) (1) Metastatic malignant neoplasm of unknown primary site Current Visit: Yes Status: Acute (2) Cachexia Current Visit: Yes Status: Acute (3) Hypercalcemia of malignancy Current Visit: Yes Status: Acute (4) Hypokalemia Current Visit: Yes Status: Acute (5) Anemia, chronic disease Current Visit: Yes Status: Acute - Plan Continue with current plan of care as mentioned below: 1. Metastatic cancer of unknown primary; biopsy performed on May 28 at the hospital here; patient had a fine-needle aspiration of the adrenals. Pathology pending. Prognosis is poor. Performance status is poor. Patient not able to tolerate any aggressive intervention at this time so we will need outpatient therapy prior to any intervention. 2. Hypercalcemia of malignancy; status post pamidronate; continue monitoring calcium level and may need calcitonin at discharge 3. Cachexia and emaciated with muscular atrophy; continue with physical therapy and nutritional support. Patient cachexia most likely secondary to cancer and will continue with supportive care 4. Hypertension; resume antihypertensives 5. Hypokalemia; monitor electrolytes closely 6. Anemia of chronic disease; monitor H&H 7. GI DVT prophylaxis Discharge Plan: Long Term Plan to discharge in: Greater than 2 days - Advance Directives Does patient have a Living Will: No Does patient have a Durable POA for Healthcare: No - Code Status/Comfort Care Code Status: Full Code Critical Care: No Time Spent Managing PTS Care (In Minutes): 35
--- NOTE | 2024-06-05 05:47 | P.PN ---
Date of Service: 06/04/24 Subjective Patient clinically doing well. Patient denies any new complaints. Working on detention facility placement. Trying to improve nutritional support and continuing with physical therapy. At this time patient is medically stable for discharge back to detention. Patient has biopsy pending that was done on May 28 for the malignancy. Unfortunately, patient not strong enough to get any aggressive chemotherapy at this time so 1 of improve his strength and referral to oncology afterwards. Unfortunately, long-term prognosis is poor. Physical Examination - Vital Signs Reviewed - Physical Exam General: Alert, In no apparent distress, Oriented x3, Cachectic Respiratory: Diminished, Rhonchi/gurgles Cardiovascular: Regular rate/rhythm, Normal S1 S2, Systolic murmur Gastrointestinal: Normal bowel sounds, Soft and benign, Non-distended, No tenderness Musculoskeletal: No clubbing, No swelling, No tenderness Neurological: Abnormal gait, Abnormal strength Assessment & Plan - Problems (Diagnosis) (1) Metastatic malignant neoplasm of unknown primary site Current Visit: Yes Status: Acute (2) Cachexia Current Visit: Yes Status: Acute (3) Hypercalcemia of malignancy Current Visit: Yes Status: Acute (4) Hypokalemia Current Visit: Yes Status: Acute (5) Anemia, chronic disease Current Visit: Yes Status: Acute - Plan Continue with current plan of care as mentioned below: 1. Metastatic cancer of unknown primary; biopsy performed on May 28 at the hospital here; patient had a fine-needle aspiration of the adrenals. Pathology pending. Prognosis is poor. Performance status is poor. Patient not able to tolerate any aggressive intervention at this time so we will need outpatient therapy prior to any intervention. 2. Hypercalcemia of malignancy; status post pamidronate; continue monitoring calcium level and may need calcitonin at discharge 3. Cachexia and emaciated with muscular atrophy; continue with physical therapy and nutritional support. Patient cachexia most likely secondary to cancer and will continue with supportive care with nutritional asst 4. Hypertension; resume antihypertensives 5. Hypokalemia; monitor electrolytes closely 6. Anemia of chronic disease; monitor H&H 7. GI DVT prophylaxis Discharge Plan: [facility] Plan to discharge in: Greater than 2 days - Advance Directives Does patient have a Living Will: No Does patient have a Durable POA for Healthcare: No - Code Status/Comfort Care Code Status: Full Code Critical Care: No Time Spent Managing PTS Care (In Minutes): 35
[2024-06-05] MEDS: METOPROLOL TAR 25 MG TAB PO SCH (06:00)
[2024-06-05 06:21] LABS: Absolute Basophils 0.1 K/uL (0-0.5); Absolute Eosinophils 0.2 K/uL (0-0.5); Absolute Lymphocytes (CBC) 1.1 K/uL (0.7-4.9); Absolute Monocytes 0.8 K/uL (0.1-1.3); Absolute Neutrophil 4.9 K/uL (1.8-8.0); Basophils % 0.9 % (0-1.3); Eosinophils % 2.4 % (0-4.4); Hematocrit 34.3 % (39.6-49.0); Hemoglobin 11.4 g/dL (13.6-17.9); Lymphocytes % 15.7 % (15.3-44.8); MCH 25.4 pg (27.0-35.0); MCHC 33.1 g/dL (32.0-36.0); MCV 76.7 fL (80-100); MPV 8.2 fL (7.6-11.3); Monocytes % 11.4 % (3.3-12.3); Neutrophils % 69.6 % (41.7-73.7); Platelets 207 thou/uL (152-406); RBC Red Blood Cell Count 4.48 M/uL (4.33-5.43); Red Cell Distribution Width 13.9 % (12.1-15.2)
[2024-06-05 06:41] LABS: Anion Gap 9.6 mEq/L (5.0-15.0); Potassium 3.6 mEq/L (3.5-5.1)
[2024-06-05] MEDS: AMLODIPINE 10 MG TAB PO SCH (07:57)
--- NOTE | 2024-06-05 14:00 | P.PN ---
Subjective: No chest pain or shortness of breath. No nausea or vomiting. No abdominal pain. No obvious bleeding. Looks comfortable in the bed. Denies any back pain. Objective: General appearance: Alert and comfortable CVS: Normal S1 and S2 Lungs: Clear to auscultation bilaterally Abdomen: Soft, bowel sounds present, no tenderness Extremities: No lower extremity edema 78-year-old patient with metastatic cancer with unknown primary, malignant hypercalcemia, calcium improving, f/u path. He has splenomegaly on imaging, lumbar and thoracic compression fractures on CT, some are new and some are old, denies any back pain, this could be related underlying malignancy as well, need to follow-up with oncology as soon as possible. Waiting for the rehab placement at this time. Plan discussed with the patient and case management team.
--- NOTE | 2024-06-06 00:12 | RAD REPORT ---
EXAMINATION: MR Brain W/Wo Cont CLINICAL INDICATION: [facility] MAIN N Metastatic disease to the brain TECHNIQUE: Multiplanar multisequence MR images of the brain with and without were obtained before and after intr avenous administration of 17 mL MultiHance. COMPARISON: Head CT 06/01/2024 FINDINGS: Scattered T2/FLAIR hyperintensities within the periventricular, deep, and subcortical white matter, n onspecific, but likely suggesting chronic microvascular ischemic changes. Diffusion weighted/ADC mapping images do not reveal evidence of an acute infarction or other diffusio n signal abnormality. No evidence of intracranial hemorrhage. No susceptibility signal abnormality. Ventricles are normal caliber. Midline structures are unremarkable. No abnormal enhancement or mass effect. Major arterial and dural venous sinus flow voids are preserve d. No extra-axial fluid collection. No fluid within the visualized sinuses/mastoids. IMPRESSION: No acute intracranial abnormality seen. No abnormal enhancement or mass effect. Nonspecific deep white matter T2/FLAIR hyperintensities, could represent mild chronic small vessel is chemic changes.
--- NOTE | 2024-06-06 08:21 | P.PN ---
Date of Service: 06/05/24 Subjective Awake and conversing well Was not able to walk today but able to do exercises in bed with PT Awaiting SNF placement ROS 10 point ROS as noted above, otherwise negative Physical Exam General: NAD, Alert and Oriented x3, Cachectic Respiratory: Diminished, Rhonchi/gurgles Cardiovascular: RRR, Normal S1 S2, Systolic murmur Gastrointestinal: Normal bowel sounds, Soft and benign, Non-distended, No tenderness Musculoskeletal: No clubbing, No swelling, No tenderness Neurological: Abnormal gait, Abnormal strength Vitals Reviewed Problem list Metastatic malignant neoplasm of unknown primary site Cachexia Hyperglycemia of malignancy Hypokalemia Anemia of chronic disease Assessment and Plan Metastatic malignant neoplasm of unknown primary site -biopsy performed on May 28 at the hospital here; -patient had a fine-needle aspiration of the adrenals, Pathology pending. -Prognosis is poor., Performance status is poor. -Patient not able to tolerate any aggressive intervention at this time so we will need outpatient therapy prior to any intervention. Cachexia -emaciated with muscular atrophy; -continue with physical therapy and nutritional support. -Patient cachexia most likely secondary to cancer and will continue with supportive care with nutritional asst Hyperglycemia of malignancy -status post pamidronate -continue monitoring calcium level and may need calcitonin at discharge Hypokalemia -monitor daily and replace PRN Anemia of chronic disease - monitor H/J DVT ppx lovenox Full code Dispo SNF Time Spent Managing Pts Care (In Minutes): 35
--- NOTE | 2024-06-06 08:22 | P.PN ---
Date of Service: 06/06/24 Subjective Good conversation, feeling well no new complaints Awaiting SNF placement ROS 10 point ROS as noted above, otherwise negative Physical Exam General: Alert and Oriented x3, NAD Respiratory: Clear BBS, normal air movement, on RA Cardiovascular: Regular rate and rhythm, Normal S1 S2, Systolic murmur Gastrointestinal: Normal bowel sounds, Soft on palpation Extremities: Left axilla lump with clean incision, 2+ peripheral pulses Musculoskeletal: No clubbing, No swelling, No tenderness Neurological: Abnormal gait, Abnormal strength Vitals Reviewed Problem list Metastatic malignant neoplasm of unknown primary site Cachexia Hyperglycemia of malignancy Hypokalemia Anemia of chronic disease Assessment and Plan Metastatic malignant neoplasm of unknown primary site -biopsy performed on May 28 at the hospital here; -patient had a fine-needle aspiration of the adrenals, Pathology pending. -Prognosis is poor., Performance status is poor. -Patient not able to tolerate any aggressive intervention at this time so we will need outpatient therapy prior to any intervention. Cachexia -emaciated with muscular atrophy; -continue with physical therapy and nutritional support. -Patient cachexia most likely secondary to cancer and will continue with supportive care with nutritional asst Hyperglycemia of malignancy -status post pamidronate -continue monitoring calcium level and may need calcitonin at discharge Hypokalemia -monitor daily and replace PRN Anemia of chronic disease - monitor H/J DVT ppx lovenox Full code Dispo SNF Time Spent Managing Pts Care (In Minutes): 35
[2024-06-06 09:15] LABS: Absolute Eosinophils 0.2 K/uL (0-0.5); Absolute Lymphocytes (CBC) 1.1 K/uL (0.7-4.9); Absolute Monocytes 0.9 K/uL (0.1-1.3); Absolute Neutrophil 5.2 K/uL (1.8-8.0); Basophils % 0.6 % (0-1.3); Eosinophils % 2.8 % (0-4.4); Hematocrit 33.4 % (39.6-49.0); Hemoglobin 11.3 g/dL (13.6-17.9); Lymphocytes % 14.9 % (15.3-44.8); MCH 25.7 pg (27.0-35.0); MCHC 33.8 g/dL (32.0-36.0); MCV 76.2 fL (80-100); MPV 8.4 fL (7.6-11.3); Monocytes % 11.8 % (3.3-12.3); Neutrophils % 69.9 % (41.7-73.7); Nucleated Red Blood Cells % 0.2 % (0-0); Platelets 223 thou/uL (152-406); RBC Red Blood Cell Count 4.39 M/uL (4.33-5.43); Red Cell Distribution Width 14.3 % (12.1-15.2)
[2024-06-06 09:27] LABS: Anion Gap 9.6 mEq/L (5.0-15.0); Magnesium 1.9 mg/dL (1.6-2.4); Phosphorus 3.5 mg/dL (2.5-4.9); Potassium 3.6 mEq/L (3.5-5.1)
[2024-06-07 06:02] LABS: Absolute Eosinophils 0.2 K/uL (0-0.5); Absolute Monocytes 0.7 K/uL (0.1-1.3); Absolute Neutrophil 3.7 K/uL (1.8-8.0); Basophils % 0.6 % (0-1.3); Eosinophils % 3.4 % (0-4.4); Hematocrit 31.8 % (39.6-49.0); Hemoglobin 10.9 g/dL (13.6-17.9); Lymphocytes % 17.6 % (15.3-44.8); MCH 26.2 pg (27.0-35.0); MCHC 34.3 g/dL (32.0-36.0); MCV 76.4 fL (80-100); MPV 8.4 fL (7.6-11.3); Monocytes % 11.8 % (3.3-12.3); Neutrophils % 66.6 % (41.7-73.7); Platelets 182 thou/uL (152-406); RBC Red Blood Cell Count 4.17 M/uL (4.33-5.43); Red Cell Distribution Width 13.9 % (12.1-15.2)
[2024-06-07 06:22] LABS: Anion Gap 9.5 mEq/L (5.0-15.0); C-Reactive Protein 11.4 mg/L (<3.00); Magnesium 1.8 mg/dL (1.6-2.4); Phosphorus 3.6 mg/dL (2.5-4.9); Potassium 3.5 mEq/L (3.5-5.1)
[2024-06-07] MEDS ORDERED: POTASSIUM CL SA 10 MEQ TAB PO ONE (09:00)
[2024-06-07] MEDS: POTASSIUM CL SA 10 MEQ TAB PO ONE (09:17)
[2024-06-07] MEDS: MAGNESIUM OXIDE 400 MG TAB PO SCH (09:17)
--- NOTE | 2024-06-07 17:13 | P.PN ---
Subjective Date of Service: 06/07/24 Chief Complaint: Generalized weakness Subjective: No new changes Review of Systems 10-point ROS is otherwise unremarkable General: Weakness Physical Examination - Vital Signs Temperature: 98.1 F Blood Pressure: 152/88 Pulse: 80 Respirations: 18 Pulse Ox (%): 96 - Physical Exam General: Alert, In no apparent distress, Oriented x2 HEENT: Atraumatic, PERRLA, EOMI Neck: Supple, JVD not distended Respiratory: Clear to auscultation bilaterally, Normal air movement Cardiovascular: Regular rate/rhythm, Normal S1 S2 Capillary refill: <2 Seconds Gastrointestinal: Normal bowel sounds, No tenderness Musculoskeletal: No tenderness Integumentary: No rashes Neurological: Normal speech, Normal tone, Normal affect Lymphatics: No axilla or inguinal lymphadenopathy - Studies Medications List Reviewed: Yes Assessment And Plan - Plan Metastatic malignant neoplasm of unknown primary site - 05/28, biopsy completed - Pathology pending from aspiration of the adrenals - Prognosis is poor and patient not able to tolerate any aggressive intervention at this time - Outpatient follow up needed Cachexia -Emaciated with muscular atrophy -Continue with PT and encourage nutrition -Patient cachexia most likely secondary to cancer and will continue with supportive care with nutritional asst Hyperglycemia of malignancy - S/p Pamidronate - Continue monitoring calcium level - Re-[place] for need of calcitonin at discharge Hypokalemia - Monitor daily and replete with protocol - Current K+ 3.5 Anemia of chronic disease - Hgb and platelets stable, continue to monitor Code Status: Full Code Discharge Plan: Intermediate (SNF/[facility]) Plan to discharge in: 24 Hours - Code Status/Comfort Care Code Status Assessed: Yes (FULL CODE )
[2024-06-08 05:37] LABS: Absolute Eosinophils 0.1 K/uL (0-0.5); Absolute Monocytes 0.7 K/uL (0.1-1.3); Absolute Neutrophil 3.7 K/uL (1.8-8.0); Basophils % 0.5 % (0-1.3); Eosinophils % 2.5 % (0-4.4); Hematocrit 32.8 % (39.6-49.0); Lymphocytes % 18.3 % (15.3-44.8); MCH 25.6 pg (27.0-35.0); MCHC 33.5 g/dL (32.0-36.0); MCV 76.6 fL (80-100); MPV 8.1 fL (7.6-11.3); Neutrophils % 66.7 % (41.7-73.7); Nucleated Red Blood Cells % 0.1 % (0-0); Platelets 188 thou/uL (152-406); RBC Red Blood Cell Count 4.28 M/uL (4.33-5.43); Red Cell Distribution Width 13.9 % (12.1-15.2)
[2024-06-08 05:50] LABS: Anion Gap 10.6 mEq/L (5.0-15.0); Potassium 3.6 mEq/L (3.5-5.1)
[2024-06-08] MEDS: POTASSIUM CL SA 10 MEQ TAB PO ONE (09:47)
--- NOTE | 2024-06-08 14:37 | P.PN ---
Subjective Date of Service: 06/08/24 Chief Complaint: Generalized weakness Subjective: No chest pain or shortness of breath. No nausea or vomiting. No abdominal pain. No obvious bleeding. Looks comfortable in the chair and eating breakfast Objective: General appearance: Alert and comfortable CVS: Normal S1 and S2 Lungs: Clear to auscultation bilaterally Abdomen: Soft, bowel sounds present, no tenderness Extremities: No lower extremity edema. Physical Examination - Vital Signs Temperature: 97.8 F Blood Pressure: 135/73 Pulse: 78 Respirations: 14 Pulse Ox (%): 97 - Studies Medications List Reviewed: Yes Assessment And Plan - Plan Metastatic malignant neoplasm of unknown primary site - 05/28, biopsy completed - Pathology pending from aspiration of the adrenals - Prognosis is poor and patient not able to tolerate any aggressive intervention at this time - Outpatient follow up needed Cachexia -Emaciated with muscular atrophy -Continue with PT and encourage nutrition -Patient cachexia most likely secondary to cancer and will continue with supportive care with nutritional asst Hypercalcemia of malignancy - S/p Pamidronate - Continue monitoring calcium level - Re-evalaute for need of calcitonin at discharge Hypokalemia - Monitor daily and replete with protocol - Current K+ 3.5 Anemia of chronic disease - Hgb and platelets stable, continue to monitor 78-year-old patient with metastatic cancer with unknown primary, malignant hypercalcemia, calcium improving, f/u path. He has splenomegaly on imaging, lumbar and thoracic compression fractures on CT, some are new and some are old, denies any back pain, this could be related underlying malignancy as well, need to follow-up with oncology as soon as possible. Waiting for the rehab placement at this time. Plan discussed with the patient and case management team.
[2024-06-09 08:08] LABS: Absolute Eosinophils 0.1 K/uL (0-0.5); Absolute Monocytes 0.8 K/uL (0.1-1.3); Absolute Neutrophil 4.3 K/uL (1.8-8.0); Basophils % 0.3 % (0-1.3); Eosinophils % 1.7 % (0-4.4); Hematocrit 33.2 % (39.6-49.0); Hemoglobin 11.3 g/dL (13.6-17.9); Lymphocytes % 16.1 % (15.3-44.8); MCHC 34.1 g/dL (32.0-36.0); MPV 8.4 fL (7.6-11.3); Monocytes % 12.3 % (3.3-12.3); Neutrophils % 69.6 % (41.7-73.7); Nucleated Red Blood Cells % 0.2 % (0-0); Platelets 171 thou/uL (152-406); RBC Red Blood Cell Count 4.37 M/uL (4.33-5.43); Red Cell Distribution Width 14.2 % (12.1-15.2)
[2024-06-09 08:23] LABS: Anion Gap 11.5 mEq/L (5.0-15.0); Potassium 3.5 mEq/L (3.5-5.1)
--- NOTE | 2024-06-09 12:45 | P.PN ---
Subjective Date of Service: 06/09/24 Chief Complaint: Generalized weakness Subjective: No chest pain or shortness of breath. No nausea or vomiting. No abdominal pain. No obvious bleeding. Looks comfortable in the bed. Objective: General appearance: Alert and comfortable CVS: Normal S1 and S2 Lungs: Clear to auscultation bilaterally Abdomen: Soft, bowel sounds present, no tenderness Extremities: No lower extremity edema. 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, - patient may not able to tolerate any aggressive intervention at this time - Outpatient follow up with oncology mabel Cachexia -Emaciated with muscular atrophy -Continue with PT and encourage nutrition -Patient cachexia most likely secondary to cancer and will continue with supportive care with nutritional asst Hypercalcemia of malignancy - S/p Pamidronate - Continue monitoring calcium level - Re-evalaute for need of calcitonin at discharge Hypokalemia - Monitor daily and replete with protocol - Current K+ 3.5 Anemia of chronic disease - Hgb and platelets stable, continue to monitor 78-year-old patient with metastatic cancer with unknown primary, malignant hypercalcemia, calcium improving, f/u path. He has splenomegaly on imaging, lumbar and thoracic compression fractures on CT, some are new and some are old, denies any back pain, this could be related underlying malignancy as well, need to follow-up with oncology as soon as possible. Waiting for the rehab placement at this time. Plan discussed with the patient and nursing staff
[2024-06-09] MEDS: POTASSIUM CL SA 10 MEQ TAB PO ONE (16:55)
[2024-06-10 07:41] LABS: Absolute Basophils 0.1 K/uL (0-0.5); Absolute Eosinophils 0.1 K/uL (0-0.5); Absolute Lymphocytes (CBC) 0.7 K/uL (0.7-4.9); Absolute Monocytes 0.6 K/uL (0.1-1.3); Absolute Neutrophil 3.8 K/uL (1.8-8.0); Basophils % 1.4 % (0-1.3); Eosinophils % 1.1 % (0-4.4); Hematocrit 35.1 % (39.6-49.0); Hemoglobin 11.6 g/dL (13.6-17.9); Lymphocytes % 13.2 % (15.3-44.8); MCH 25.5 pg (27.0-35.0); MCHC 33.1 g/dL (32.0-36.0); MCV 77.1 fL (80-100); MPV 7.9 fL (7.6-11.3); Monocytes % 11.6 % (3.3-12.3); Neutrophils % 72.7 % (41.7-73.7); Nucleated Red Blood Cells % 0.1 % (0-0); Platelets 186 thou/uL (152-406); RBC Red Blood Cell Count 4.56 M/uL (4.33-5.43)
[2024-06-10 08:00] LABS: Anion Gap 9.6 mEq/L (5.0-15.0); Potassium 3.6 mEq/L (3.5-5.1)
--- NOTE | 2024-06-10 11:31 | P.PN ---
Subjective Date of Service: 06/10/24 Chief Complaint: Generalized weakness Subjective: No chest pain or shortness of breath. No nausea or vomiting. No abdominal pain. No obvious bleeding. Looks comfortable in the bed. Objective: General appearance: Alert and comfortable CVS: Normal S1 and S2 Lungs: Clear to auscultation bilaterally Abdomen: Soft, bowel sounds present, no tenderness Extremities: No lower extremity edema. 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, i couldnt find the report but med records showed odalys copy - patient may not able to tolerate any aggressive intervention at this time - Outpatient follow up with oncology mabel Cachexia -Emaciated with muscular atrophy -Continue with PT and encourage nutrition -Patient cachexia most likely secondary to cancer and will continue with supportive care with nutritional asst Hypercalcemia of malignancy - S/p Pamidronate - Continue monitoring calcium level - Re-evalaute for need of calcitonin at discharge Hypokalemia - Monitor daily and replete with protocol Anemia of chronic disease - Hgb and platelets stable, continue to monitor 78-year-old patient with metastatic cancer with unknown primary, malignant hypercalcemia, calcium improving. He has splenomegaly on imaging, lumbar and thoracic compression fractures on CT, some are new and some are old, denies any back pain, this could be related underlying malignancy as well, need to follow- up with oncology as soon as possible. Waiting for the rehab placement at this time. Plan discussed with the patient and nursing staff
[2024-06-11 06:08] LABS: Anion Gap 9.9 mEq/L (5.0-15.0); Potassium 3.9 mEq/L (3.5-5.1)
[2024-06-11 06:09] LABS: Absolute Eosinophils 0.1 K/uL (0-0.5); Absolute Lymphocytes (CBC) 1.1 K/uL (0.7-4.9); Absolute Monocytes 0.8 K/uL (0.1-1.3); Basophils % 0.6 % (0-1.3); Eosinophils % 1.6 % (0-4.4); Hematocrit 33.8 % (39.6-49.0); Hemoglobin 11.6 g/dL (13.6-17.9); Lymphocytes % 17.6 % (15.3-44.8); MCHC 34.2 g/dL (32.0-36.0); MCV 75.9 fL (80-100); MPV 8.4 fL (7.6-11.3); Monocytes % 13.4 % (3.3-12.3); Neutrophils % 66.8 % (41.7-73.7); Nucleated Red Blood Cells % 0.6 % (0-0); Platelets 168 thou/uL (152-406); RBC Red Blood Cell Count 4.45 M/uL (4.33-5.43); Red Cell Distribution Width 14.2 % (12.1-15.2)
[2024-06-11] MEDS: POTASSIUM CL SA 10 MEQ TAB PO ONE (08:15)
[2024-06-11 11:05] VITALS: O2SAT 99
[2024-06-11 12:28] VITALS: TEMP 98.1
[2024-06-11 16:35] VITALS: BP 141/78
== END 2024-06-11 16:30 | disposition home health service (06) | DRG 641 ==
LOC: ER 23:54 → ERHOLD 06-01 05:23 → 2ND 06-01 17:20
PROVIDERS: ADMIT Family Medicine; ATTEND Hospitalist
DX: E87.6 Hypokalemia (principal); C85.10 Unspecified B-cell lymphoma, unspecified site; E44.0 Moderate protein-calorie malnutrition; R64 Cachexia; E83.52 Hypercalcemia; E03.9 Hypothyroidism, unspecified; E78.5 Hyperlipidemia, unspecified; I10 Essential (primary) hypertension; D63.8 Anemia in other chronic diseases classified elsewhere; C80.1 Malignant (primary) neoplasm, unspecified; R29.6 Repeated falls; R73.9 Hyperglycemia, unspecified; Z68.23 Body mass index [BMI] 23.0-23.9, adult; Z88.0 Allergy status to penicillin; Z91.81 History of falling; Z79.890 Hormone replacement therapy; Z79.899 Other long term (current) drug therapy; Z85.828 Personal history of other malignant neoplasm of skin
CPT/HCPCS: 36415; 70450; 70553; 71250; 72125; 74176; 80048; 80053; 80076; 81003; 82550; 83605; 83735; 83880; 84100; 84484; 85025; 85610; 86140; 87040; 93005; 94760; 96360; 96361; 97110; 97116; 97161; 97530; 99285; A9577; J0360; J1650; J1940; J2405; J2430; J3475; J3480; J7030; J7040

== ENCOUNTER 2024-06-12 13:20 | Emergency (ER) | payer OTHER ==
--- NOTE | 2024-06-12 14:18 | RAD REPORT ---
EXAM: Chest Single View HISTORY: 78 years Male COUGH COMPARISON: 04/25/2023 FINDINGS: LUNGS/PLEURA: The lungs are clear. No pleural effusions or pneumothorax. No pulmonary edema. CARDIAC/MEDIASTINUM: The cardiac silhouette is within normal limits. UPPER ABDOMEN: No significant abnormality. BONES: No acute abnormality. LINES/TUBES/OTHER: N/A IMPRESSION: No evidence of acute cardiopulmonary disease.
--- NOTE | 2024-06-12 14:33 | RAD REPORT ---
EXAMINATION: Head C Spine Mpr Wo Con CLINICAL INDICATION: Male, 78 years old. Dizziness;Pain TECHNIQUE: Axial CT images from the skull base to the vertex without intravenous contrast. Axial CT i mages through the cervical spine were obtained without intravenous contrast. Sagittal and coronal reformatted images were created from the data set. Coronal and sagittal reformatted images were creat ed from the data set. One or more of the following dose reduction techniques were used: Automated exposure control, adjustment of the mA and/or kV according to patient size, and/or iterative reconstr uction. Unless otherwise specified, incidental findings do not require dedicated imaging follow-up. [id number]. COMPARISON: MRI 05/08/2024 FINDINGS: Head: INTRACRANIAL: No acute intracranial hemorrhage. No hydrocephalus. No mass effect or midline shift. Mi ld chronic small vessel ischemic changes.Mild cerebral atrophy. VASCULATURE: No visualized abnormalities in the arteries or dural venous sinuses. SCALP/SKULL: No calvarial fracture identified. No acute soft tissue abnormality. SINUSES: The visualized paranasal sinuses are mostly clear. No significant mastoid fluid. Cervical spine: ALIGNMENT: The cervical spine has normal alignment without scoliosis or spondylolisthesis. BONE: Vertebral body heights are maintained. No aggressive osseous lesions. DEGENERATIVE: Multilevel cervical spondylosis with varying degrees of neural foraminal narrowing. SOFT TISSUE: No significant abnormalities in the soft tissue of the neck. The visualized lung apices are clear. IMPRESSION: No acute intracranial abnormality. No acute fracture or traumatic malalignment of the cervical spine.
--- NOTE | 2024-06-12 14:39 | RAD REPORT ---
EXAM: Chest Abd Pelvis Wo Con CLINICAL INDICATION: Male, 78 years old DIZZY AND PAIN TECHNIQUE: CT chest, abdomen and pelvis was performed, without IV contrast, as per department protoco l. Axial, sagittal and coronal reconstructions were obtained. One or more of the following dose reduction techniques were used: Automated exposure control, adjustment of the mA and/or kV according to the patient size, and/or iterative reconstruction. Unless otherwise specified, incidental findings do not require dedicated imaging follow-up. [id number]. COMPARISON: 06/01/2024 FINDINGS: The lack of intravenous contrast limits the sensitivity of this exam for evaluation of solid visceral organs, vascular structures, and retroperitoneum. ---THORAX--- LOWER NECK AND CHEST WALL: Left axillary soft tissue mass/postsurgical change is similar. LUNGS AND AIRWAYS: Airways are clear. No evidence of airspace or interstitial process.Bilateral metas tatic pulmonary lesions are unchanged compared with 06/01/2024 PLEURA: No pleural effusion. No pneumothorax. MEDIASTINUM AND LYMPH NODES: No mediastinal mass or fluid collection. Normal size mediastinal, hilar, and axillary lymph nodes. THORACIC AORTA: No thoracic aortic aneurysm. PULMONARY ARTERIES: Caliber is within normal limits. HEART: Normal heart size. Mild coronary artery calcifications.No significant pericardial effusion. ---ABDOMEN/PELVIS--- UPPER GI: No significant abnormality. LIVER: No significant focal abnormality. GALLBLADDER/BILE DUCTS: No biliary ductal dilatation.? PANCREAS: No mass, ductal dilation, or vickie-pancreatic fluid. SPLEEN: Mild splenomegaly. ADRENALS: Bilateral adrenal masses are unchanged, the largest measures 6.6 cm. KIDNEYS AND URETERS: Unchanged bilateral renal lesions including the large right upper pole cyst.No h ydronephrosis.No renal calculi. ABDOMINAL AORTA AND OTHER VESSELS: Moderate atherosclerotic changes without aortic aneurysm. PERITONEUM: No abnormal free fluid. No free air. LYMPH NODES: Lymphadenopathy at the SMA is unchanged. ABDOMINAL WALL: Unremarkable SMALL BOWEL/COLON: Small bowel has normal course and caliber. No colonic wall thickening or pericolon ic inflammatory changes. URINARY BLADDER: Underdistended but grossly unremarkable. REPRODUCTIVE ORGANS: No pathologic process. ---COMBINED--- MUSCULOSKELETAL: Osseous metastatic lesion to T10 is similar. ADDITIONAL FINDINGS: None. IMPRESSION: No acute findings within the chest, abdomen, or pelvis. Similar known metastatic disease.
[2024-06-12 15:06] LABS: Absolute Lymphocytes (CBC) 1.1 K/uL (0.7-4.9); Absolute Monocytes 0.9 K/uL (0.1-1.3); Absolute Neutrophil 4.3 K/uL (1.8-8.0); Basophils % 0.3 % (0-1.3); Eosinophils % 0.5 % (0-4.4); Hematocrit 37.2 % (39.6-49.0); Hemoglobin 12.6 g/dL (13.6-17.9); Lymphocytes % 17.2 % (15.3-44.8); MCH 25.8 pg (27.0-35.0); MCHC 33.8 g/dL (32.0-36.0); MCV 76.3 fL (80-100); MPV 8.2 fL (7.6-11.3); Monocytes % 14.4 % (3.3-12.3); Neutrophils % 67.6 % (41.7-73.7); Platelets 203 thou/uL (152-406); RBC Red Blood Cell Count 4.87 M/uL (4.33-5.43); Red Cell Distribution Width 14.1 % (12.1-15.2)
[2024-06-12] MEDS ORDERED: ONDANSETRON 4 MG/2 ML VIAL ONE (15:14)
[2024-06-12] MEDS ORDERED: NA CHLORIDE 0.9% 1,000 ML ONE (15:15)
[2024-06-12] MEDS ORDERED: FAMOTIDINE 20 MG/2 ML VIAL IV ONE (15:15)
[2024-06-12] MEDS ORDERED: FENTANYL CITR 100 MCG/2 ML ONE (15:15)
[2024-06-12 15:18] LABS: PT Prothrombin Time 14.5 SECONDS (10-13.0); Protime INR 1.29
[2024-06-12 15:30] LABS: Albumin 3.6 g/dL (3.4-5.0); Anion Gap 9.6 mEq/L (5.0-15.0); Bilirubin Direct 0.2 mg/dL (0-0.2); Bilirubin Indirect, Calculated 0.5 mg/dL (0.2-0.8); Bilirubin Total 0.7 mg/dL (0.2-1.0); Globulin 3.5 g/dL (2.3-3.5); Magnesium 1.9 mg/dL (1.6-2.4); Potassium 3.6 mEq/L (3.5-5.1); Protein, Total 7.1 g/dL (6.4-8.2); Troponin High Sensitivity 15.5 pg/mL (<58.9)
--- NOTE | 2024-06-12 17:10 | ER ---
Nurse's Notes [facility] Name: Salo Miller Age: 78 yrs Sex: Male : 1945 Arrival Date: 06/12/2024 Time: 13:20 Bed 17 Private MD: Diagnosis: Low back pain-acute on chronic;Burkitt lymphoma, unspecified site-diffuse B CELL LYMPHOMA Presentation: 06/12 13:43 Chief complaint: Spouse and/or significant other states: [facility] the ER [facility]. states that they were told to come to the ER to be transferred to [facility] for chemo. Pt diagnosed with Metastatic Malignant neoplasm. Coronavirus screen: Client denies travel out of the [place] in the last 14 days. Ebola Screen: Patient denies travel to an Ebola-affected area in the 21 days before illness onset. Initial Sepsis Screen: Does the patient meet any 2 criteria? HR > 90 bpm. Does the patient have a suspected source of infection? No. Patient's initial sepsis screen is negative. Risk Assessment: Do you want to hurt yourself or someone else? Patient reports no desire to harm self or others. Onset of symptoms was June 12, 2024. 13:43 Method Of Arrival: Wheelchair cm10 13:43 Acuity: DAVIS 3 cm10 Historical: - Allergies: 13:45 PENICILLINS; cm10 - PMHx: 13:45 Hypertensive disorder; Hypothyroidism; Leukemia; skin cancer; cm10 - Immunization history:: Adult Immunizations unknown. - Infectious Disease History:: Denies. - Social history:: Smoking status: unknown. - Family history:: not pertinent. Screenin:37 [facility] ED Fall Risk Assessment (Adult) History of falling in the last 3 months, ld1 including since admission No falls in past 3 months (0 pts) Confusion or Disorientation No (0 pts) Intoxicated or Sedated No (0 pts) Impaired Gait No (0 pts) Mobility Assist Device Used No (0 pt) Altered Elimination No (0 pt) Score/Fall Risk Level 0 - 2 = Low Risk Oriented to surroundings, Hourly rounding (assess needs \T\ fall precautionary measures) done. Abuse screen: Denies threats or abuse. Denies injuries from another. Nutritional screening: No deficits noted. Tuberculosis screening: No symptoms or risk factors identified. Assessment: 15:37 General: Appears in no apparent distress. comfortable, Behavior is calm, cooperative, ld1 appropriate for age. Pain: Complains of pain in face, back and abdomen Pain does not radiate. Pain currently is 7 out of 10 on a pain scale. Quality of pain is described as throbbing, Pain began suddenly. Neuro: Level of Consciousness is awake, alert, obeys commands, Oriented to person, place, time, situation. Cardiovascular: Capillary refill < 3 seconds Patient's skin is warm and dry. Respiratory: Airway is patent Respiratory effort is even, unlabored. GI: Abdomen is flat, non-distended. : No signs and/or symptoms were reported regarding the genitourinary system. EENT: No signs and/or symptoms were reported regarding the EENT system. Derm: No signs and/or symptoms reported regarding the dermatologic system. Musculoskeletal: No signs and/or symptoms reported regarding the musculoskeletal system. 16:54 Reassessment: Patient appears in no apparent distress at this time. No changes from ld1 previously documented assessment. Patient and/or family updated on plan of care and expected duration. Pain level reassessed. Patient is alert, oriented x 3, equal unlabored respirations, skin warm/dry/pink. 18:22 Reassessment: Patient appears in no apparent distress at this time. No changes from ld1 previously documented assessment. Patient and/or family updated on plan of care and expected duration. Pain level reassessed. Patient is alert, oriented x 3, equal unlabored respirations, skin warm/dry/pink. 19:47 General: Appears in no apparent distress. comfortable, Behavior is calm, cooperative, bm8 appropriate for age. General: pt provided evening meal and socks. Pain: Complains of pain in back and chest Pain currently is 2 out of 10 on a pain scale. Quality of pain is described as throbbing. Neuro: No deficits noted. Level of Consciousness is awake, alert, obeys commands, Oriented to person, place, time, situation, Appropriate for age. Cardiovascular: Reports chest pain, Heart tones S1 S2 present Murmur present Capillary refill < 3 seconds Patient's skin is warm and dry. Respiratory: Airway is patent Respiratory effort is even, unlabored, Respiratory pattern is regular, symmetrical, Breath sounds are clear bilaterally. GI: No signs and/or symptoms were reported involving the gastrointestinal system. : No signs and/or symptoms were reported regarding the genitourinary system. EENT: No signs and/or symptoms were reported regarding the EENT system. Derm: No signs and/or symptoms reported regarding the dermatologic system. Musculoskeletal: No signs and/or symptoms reported regarding the musculoskeletal system. Vital Signs: 13:43 BP 106 / 94; Pulse 136; Resp 18; Temp 97.5(O); Pulse Ox 100% on R/A; Weight 66.68 kg; cm10 Height 5 ft. 10 in. ; 15:33 BP 126 / 92; Pulse 105; Resp 18; Pulse Ox 100% on R/A; ld1 16:28 BP 139 / 84; Pulse 100; Resp 18; Pulse Ox 99% on R/A; ld1 16:54 BP 124 / 82; Pulse 101; Resp 18; Pulse Ox 100% on R/A; ld1 18:22 BP 140 / 91; Pulse 124; Resp 18; Pulse Ox 96% on R/A; ld1 19:47 BP 129 / 82; Pulse 116; Resp 18; Temp 97.5; Pulse Ox 100% ; Pain 2/10; bm8 13:43 Body Mass Index 21.09 (66.68 kg, 177.8 cm) cm10 19:47 Pain Scale: Adult bm8 Sigrid Coma Score: 19:47 Eye Response: spontaneous(4). Motor Response: obeys commands(6). Verbal Response: bm8 oriented(5). Total: 15. ED Course: 13:24 Patient arrived in ED. im 13:45 Triage completed. cm10 13:45 Arm band placed on right wrist. Patient placed in an exam room, on a stretcher. cm10 13:57 Cedric Montague MD is Attending Physician. john 14:15 XRAY Chest (1 view) In Process Unspecified. EDMS 14:24 Chest Abd Pelvis Wo Con In Process Unspecified. EDMS 14:24 Head C Spine Mpr Wo Con In Process Unspecified. EDMS 15:03 Inserted saline lock: 22 gauge in left forearm, using aseptic technique. Blood ld1 collected. Flushed with 10 mL NS. 15:05 Steph Alvarez, GEOVANY is Primary Nurse. ld1 15:37 Patient has correct armband on for positive identification. Placed in gown. Bed in low ld1 position. Call light in reach. Side rails up X2. threat monitoring analyst on. Pulse ox on. NIBP on. Door closed. Noise minimized. Warm blanket given. 15:37 No provider procedures requiring assistance completed. ld1 19:47 Provided Education on: need for transfer. Client placed on continuous cardiac and pulse bm8 oximetry monitoring. NIBP monitoring applied. threat monitoring analyst on. Pulse ox on. NIBP on. 19:47 IV is patent, with fluids infusing freely, with good blood return, Flushed left bm8 forearm. Patient maintains SpO2 saturation greater than 95% on room air. 20:25 Patient transferred, IV remains in place. bm8 Administered Medications: 15:30 Drug: fentaNYL (PF) IVP 50 mcg IVP once Route: IVP; Site: left wrist; ld1 19:50 Follow up: Response: No adverse reaction bm8 15:59 Drug: NS 0.9% IV 1000 ml IV at 1000 ml once; to be given as a bolus over 60 minutes ld1 Route: IV; Rate: 1000 ml; Site: left wrist; 19:50 Follow up: Response: No adverse reaction; IV Status: Completed infusion bm8 15:59 Drug: Ondansetron IVP 4 mg IVP once; over 2 minutes Route: IVP; Site: left wrist; ld1 19:50 Follow up: Response: No adverse reaction bm8 15:59 Drug: Famotidine IVP 20 mg IVP once; dilute with 10 mL 0.9% NaCl; give over 2 minutes ld1 Route: IVP; Site: left wrist; 19:50 Follow up: Response: No adverse reaction bm8 Medication: 15:37 VIS not applicable for this client. ld1 Outcome: 17:10 ER care complete, transfer ordered by MD. lopez 20:25 Transferred by ground EMS to [facility], Transfer form completed. bm8 X-rays sent w/ patient. 20:25 Condition: stable 20:25 Instructed on the need for transfer, Demonstrated understanding of instructions, follow-up care, medications, 20:26 Patient left the ED. bm8 Signatures: Dispatcher [employer] EDCedric Connors MD MD cha Sims, Lauren RN RN ld1 Veena Haro Clarissa RN RN cm10 Jamal Michael RN RN bm8
--- NOTE | 2024-06-12 17:10 | EDPHYS ---
Physician Documentation [facility] Name: Salo Miller Age: 78 yrs Sex: Male : 1945 Arrival Date: 06/12/2024 Time: 13:20 Bed 17 Private MD: KENNA Physician Cedric Montague HPI: 06/12 16:58 This 78 yrs old Male presents to ER via Wheelchair with complaints of Back john Pain, sent by cancer center. 16:58 The patient presents with pain that is acute, that is chronic, with no known mechanism john of injury. The symptoms are located in the low back. Onset: The symptoms/episode began/occurred 3 day(s) ago. The pain does not radiate. Associated signs and symptoms: The patient has no apparent associated signs or symptoms. Modifying factors: The patient symptoms are alleviated by remaining still, the patient symptoms are aggravated by any movement, bending. Severity of symptoms: At their worst the symptoms were moderate, in the emergency department the symptoms are unchanged. The patient has experienced similar episodes in the past, multiple times. Historical: - Allergies: 13:45 PENICILLINS; cm10 - PMHx: 13:45 Hypertensive disorder; Hypothyroidism; Leukemia; skin cancer; cm10 - Immunization history:: Adult Immunizations unknown. - Infectious Disease History:: Denies. - Social history:: Smoking status: unknown. - Family history:: not pertinent. ROS: 16:58 Constitutional: Negative for fever, chills, and weight loss, Eyes: Negative for injury, jhon pain, redness, and discharge, ENT: Negative for injury, pain, and discharge, Neck: Negative for injury, pain, and swelling, Respiratory: Negative for shortness of breath, cough, wheezing, and pleuritic chest pain, Abdomen/GI: Negative for abdominal pain, nausea, vomiting, diarrhea, and constipation, : Negative for injury, bleeding, discharge, and swelling, MS/Extremity: Negative for injury and deformity, Skin: Negative for injury, rash, and discoloration, Neuro: Negative for headache, weakness, numbness, tingling, and seizure, Psych: Negative for depression, anxiety, suicide ideation, homicidal ideation, and hallucinations, Allergy/Immunology: Negative for hives, rash, and allergies, Endocrine: Negative for neck swelling, polydipsia, polyuria, polyphagia, and marked weight changes, Hematologic/Lymphatic: Negative for swollen nodes, abnormal bleeding, and unusual bruising, 16:58 Cardiovascular: Positive for palpitations, 16:58 Back: Positive for decreased range of motion, pain at rest, pain with movement, of the lumbar area, Exam: 16:58 Constitutional: This is a well developed, well nourished patient who is awake, alert, john and in no acute distress. Head/Face: Normocephalic, atraumatic. Eyes: Pupils equal round and reactive to light, extra-ocular motions intact. Lids and lashes normal. Conjunctiva and sclera are non-icteric and not injected. Cornea within normal limits. Periorbital areas with no swelling, redness, or edema. ENT: Nares patent. No nasal discharge, no septal abnormalities noted. Tympanic membranes are normal and external auditory canals are clear. Oropharynx with no redness, swelling, or masses, exudates, or evidence of obstruction, uvula midline. Mucous membranes moist. Neck: Trachea midline, no thyromegaly or masses palpated, and no cervical lymphadenopathy. Supple, full range of motion without nuchal rigidity, or vertebral point tenderness. No Meningismus. Chest/axilla: Normal chest wall appearance and motion. Nontender with no deformity. No lesions are appreciated. Respiratory: Lungs have equal breath sounds bilaterally, clear to auscultation and percussion. No rales, rhonchi or wheezes noted. No increased work of breathing, no retractions or nasal flaring. Abdomen/GI: Soft, non-tender, with normal bowel sounds. No distension or tympany. No guarding or rebound. No evidence of tenderness throughout. Male : Normal genitalia with no discharge or lesions. Skin: Warm, dry with normal turgor. Normal color with no rashes, no lesions, and no evidence of cellulitis. MS/ Extremity: Pulses equal, no cyanosis. Neurovascular intact. Full, normal range of motion., bilateral aka Neuro: Awake and alert, GCS 15, oriented to person, place, time, and situation. Cranial nerves II-XII grossly intact. Motor strength 5/5 in all extremities. Sensory grossly intact. Cerebellar exam normal. Normal gait. Psych: Awake, alert, with orientation to person, place and time. Behavior, mood, and affect are within normal limits. 16:58 Cardiovascular: Rate: tachycardic, actual rate is 121 bpm, Rhythm: regular, Pulses: Pulses are 4+ in bilateral radial, brachial, femoral, popliteal, posterior tibial and and dorsalis pedis arteries.. Heart sounds: normal, Edema: is not appreciated, JVD: is not appreciated, 16:58 ECG was reviewed by the Attending Physician. 16:58 Musculoskeletal/extremity: Extremities: all appear grossly normal, with no appreciated pain with palpation, ROM: full active range of motion, full passive range of motion, Circulation is intact in all extremities. Sensation intact. Compartment Syndrome exam of affected extremity: is normal. DVT Exam: No signs of deep vein thrombosis. no pain, no swelling, no tenderness, negative Homans' sign noted on exam, no appreciated bluish discoloration, no erythema, no increased warmth, Vital Signs: 13:43 BP 106 / 94; Pulse 136; Resp 18; Temp 97.5(O); Pulse Ox 100% on R/A; Weight 66.68 kg; cm10 Height 5 ft. 10 in. ; 15:33 BP 126 / 92; Pulse 105; Resp 18; Pulse Ox 100% on R/A; ld1 16:28 BP 139 / 84; Pulse 100; Resp 18; Pulse Ox 99% on R/A; ld1 16:54 BP 124 / 82; Pulse 101; Resp 18; Pulse Ox 100% on R/A; ld1 18:22 BP 140 / 91; Pulse 124; Resp 18; Pulse Ox 96% on R/A; ld1 19:47 BP 129 / 82; Pulse 116; Resp 18; Temp 97.5; Pulse Ox 100% ; Pain 2/10; bm8 13:43 Body Mass Index 21.09 (66.68 kg, 177.8 cm) cm10 19:47 Pain Scale: Adult bm8 [place] Coma Score: 19:47 Eye Response: spontaneous(4). Motor Response: obeys commands(6). Verbal Response: bm8 oriented(5). Total: 15. MDM: 13:57 Medical Screening Exam initiated john 17:03 Differential diagnosis: chronic back pain, Fatigue Fracture Hydronephrosis Metastatic john Disease Myeloma Neoplasm Obesity Osteoarthritis Perforated Ulcer Pyelonephritis Renal Infarction ruptured disc, Scoliosis sickle cell crisis, spinal injury, sprain, Ureterolithiasis. Data reviewed: vital signs, nurses notes, lab test result(s), EKG, radiologic studies, CT scan, plain films. Consideration of Admission/Observation Escalation of care including admission/observation considered. I considered the following discharge prescriptions or medication management in the emergency department Medications were administered in the Emergency Department. See MAR. Independent interpretation of the following test(s) in the Emergency Department EKG: See my EKG interpretation above. Test considered but Not performed: MRI: no mri. Historians other than the Patient: EMS: ems well informed. dr salas well informed. Care significantly affected by the following chronic conditions: Hypertension, Cancer. 06/12 13:58 Order name: Basic Metabolic Panel; Complete Time: 16:46 john 06/12 13:58 Order name: CBC with Diff; Complete Time: 16:46 [facility] 06/12 13:58 Order name: LFT's; Complete Time: 16:46 [facility] 06/12 13:58 Order name: Magnesium; Complete Time: 16:46 [facility] 06/12 13:58 Order name: NT PRO-BNP; Complete Time: 16:46 [facility] 06/12 13:58 Order name: PT-INR; Complete Time: 16:46 [facility] 06/12 13:58 Order name: Troponin HS; Complete Time: 16:46 [facility] 06/12 13:58 Order name: Lipase; Complete Time: 16:46 [facility] 06/12 13:58 Order name: Urinalysis w/ reflexes john 06/12 19:04 Order name: Urine Culture EDMD 06/12 13:58 Order name: XRAY Chest (1 view); Complete Time: 16:46 [facility] 06/12 14:05 Order name: Chest Abd Pelvis Wo Con; Complete Time: 16:46 [facility] 06/12 14:06 Order name: Head C Spine Mpr Wo Con; Complete Time: 16:46 [facility] 06/12 13:58 Order name: Cardiac monitoring; Complete Time: 14:47 john 06/12 13:58 Order name: EKG - Nurse/Tech; Complete Time: 13:59 john 06/12 13:58 Order name: IV Saline Lock; Complete Time: 15:03 john 06/12 13:58 Order name: Labs collected and sent; Complete Time: 15:03 john 06/12 13:58 Order name: O2 Per Protocol; Complete Time: 13:59 john 06/12 13:58 Order name: O2 Sat Monitoring; Complete Time: 13:59 john EC:58 Rate is 121 beats/min. Rhythm is regular. QRS [place] is Normal. [place] interval is normal. john QRS interval is normal. QT interval is normal. No Q waves. T waves are Normal. No ST changes noted. Clinical impression: Sinus tachycardia. Interpreted by me. Reviewed by me. Administered Medications: 15:30 Drug: fentaNYL (PF) IVP 50 mcg IVP once Route: IVP; Site: left wrist; ld1 19:50 Follow up: Response: No adverse reaction bm8 15:59 Drug: NS 0.9% IV 1000 ml IV at 1000 ml once; to be given as a bolus over 60 minutes ld1 Route: IV; Rate: 1000 ml; Site: left wrist; 19:50 Follow up: Response: No adverse reaction; IV Status: Completed infusion bm8 15:59 Drug: Ondansetron IVP 4 mg IVP once; over 2 minutes Route: IVP; Site: left wrist; ld1 19:50 Follow up: Response: No adverse reaction bm8 15:59 Drug: Famotidine IVP 20 mg IVP once; dilute with 10 mL 0.9% NaCl; give over 2 minutes ld1 Route: IVP; Site: left wrist; 19:50 Follow up: Response: No adverse reaction bm8 Disposition Summary: 06/12/24 17:10 Transfer Ordered Notes: Transfer Location: 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 EDMS EDMS 13:59 13:59 CBC+H.LAB.BRZ ordered. EDMS EDMS 13:59 13:59 HEPATIC FUNCTION+C.LAB.BRZ ordered. EDMS EDMS 13:59 13:59 MAGNESIUM+C.LAB.BRZ ordered. EDMS EDMS 13:59 13:59 PROBNP+C.LAB.BRZ ordered. EDMS EDMS 13:59 13:59 PROTIME (+INR)+COAG.LAB.BRZ ordered. EDMS EDMS 13:59 13:59 Troponin High Sensitivity+C.LAB.BRZ ordered. EDMS EDMS 13:59 13:59 LIPASE+C.LAB.BRZ ordered. EDMS EDMS 13:59 13:59 Urinalysis+U.LAB.BRZ ordered. EDMS EDMS 13:59 13:59 Chest Single View+RAD.RAD.BRZ ordered. EDMS EDMS 14:06 14:00 Head C Spine Cap Wo Con+CT.RAD.BRZ ordered. EDMS EDMS 20:26 17:10 to [facility] john bm8
[2024-06-12 18:57] LABS: Specific Gravity 1.017 (1.005-1.030); Sqamous Epithelial <5 /HPF (None Seen); Transitional Epithelial <5 /HPF (None Seen); Urine Bacteria <20 /HPF (<20); Urine Bilirubin NEGATIVE (Negative); Urine Blood Negative (Negative); Urine Clarity Turbid (Clear); Urine Color Light-Yellow (Yellow); Urine Culture Reflex Order REFLEXED; Urine Glucose NEGATIVE (Negative); Urine Ketones 1+ (Negative); Urine Microscopic Reflex YN ORDER UMIC; Urine Mucus 1+ /HPF (None Seen); Urine Nitrite NEGATIVE (Negative); Urine Protein TRACE (Negative); Urine RBC <5 /HPF (None Seen); Urine Urobilinogen Normal (Normal); Urine pH 5.5 (5.0-7.0)
[2024-06-12 20:41] VITALS: TEMP 97.5
[2024-06-12 20:56] VITALS: BP 129/82; O2SAT 100
--- NOTE | 2024-06-13 12:35 | EKG ---
Test Date: 2024-06-12 Test Time: 13:57:29 Clerical Aide: VALERIANO MEASUREMENT RESULTS: Intervals: Rate: 121 NJ: 150 QRSD: 136 QT: 336 QTc: 477 [place]: P: 52 NJ: 150 QRS: 88 T: -20 INTERPRETIVE STATEMENTS: Sinus tachycardia Right bundle branch block Possible Inferior infarct, age undetermined Abnormal ECG Compared to ECG 06/01/2024 00:45:12 Atrial premature complex(es) no longer present Myocardial infarct finding still present Electronically Signed On 06-13-24 12:32:36 CDT by Christian Najera
== END 2024-06-12 20:26 | disposition short-term general hospital (02) ==
LOC: ER 13:20
DX: M54.50 Low back pain, unspecified (principal); C83.30 Diffuse large B-cell lymphoma, unspecified site
CPT/HCPCS: 96361; 93005; 87088; 85025; 81001; 87086; 80048; 36415; 83735; 85610; 80076; 84484; 83690; 83880; 70450; 71250; 72125; 74176; 71045; 96375; 96374; 99285; J3010; J2405; J7030

== ENCOUNTER 2024-07-12 09:19 | Day surgery (SDC) | payer OTHER ==
--- NOTE | 2024-07-11 12:33 | EKG ---
Test Date: 2024-07-11 Test Time: 10:46:31 [employer] Assistants: BENITO MEASUREMENT RESULTS: Intervals: Rate: 71 VT: 176 QRSD: 128 QT: 410 QTc: 445 [place]: P: 73 VT: 176 QRS: 70 T: 47 INTERPRETIVE STATEMENTS: Normal sinus rhythm Right bundle branch block Abnormal ECG Compared to ECG 06/12/2024 13:57:29 Sinus tachycardia no longer present Myocardial infarct finding no longer present Electronically Signed On 07-11-24 12:32:56 CDT by Christian Najera
[2024-07-12] MEDS ORDERED: CEFAZOLIN SODIUM 2 GM/VIAL ONE (09:35)
[2024-07-12] MEDS: Ringers Lactate 1,000 ML IV ONE (09:40)
[2024-07-12] MEDS ORDERED: MIDAZOLAM HCL 2 MG/2 ML INJ ONE (10:22)
[2024-07-12] MEDS ORDERED: LIDOCAINE 2% MPF 5 ML VIAL ONE (10:22)
[2024-07-12] MEDS ORDERED: propofoL 200 MG/20 ML VIAL IV ONE (10:22)
[2024-07-12] MEDS ORDERED: FENTANYL CITR 100 MCG/2 ML ONE ×3 (10:28→13:47)
[2024-07-12] MEDS ORDERED: NA CHLORIDE 0.9% 50 ML ONE (10:41)
[2024-07-12] MEDS: CLINDAMYCIN 600MG/D5W 50 ML IV ONE (12:16)
[2024-07-12] MEDS: LIDOCAINE HCL/EPINEPHRINE 20 ML MDV ONE (12:30)
[2024-07-12] MEDS: NS 0.9% VIAL 10 ML ONE (12:33)
[2024-07-12] MEDS: HEPARIN 5000 UNIT/ML 1 ML VIAL ONE (12:34)
[2024-07-12] MEDS ORDERED: dexAMETHasone 4 MG/ML VIAL ONE (12:36)
[2024-07-12] MEDS ORDERED: ONDANSETRON 4 MG/2 ML VIAL ONE (12:36)
[2024-07-12] MEDS ORDERED: METHYLENE BLUE 1% 10 ML VIAL ONE (13:24)
--- NOTE | 2024-07-12 14:35 | P.OP ---
Preoperative diagnosis: Lymphadenopathy Postoperative diagnosis: Lymphadenopathy Primary procedure: Placement of RIGHT IJ Chemotherapy port Secondary procedure: LEFT Inguinal Superficial lymph node biopsy Anesthesia: GETA + Local Estimated blood loss: <10cc Specimen: LEFT inguinal lymp node and adipose Findings: normal sized lymph nodes, cath @ SVC Complications: None Implants: Chemotherapy Port Transferred to: Recovery Room Condition: Good
[2024-07-12] MEDS ORDERED: Ringers Lactate 1,000 ML IV ONE (14:54)
[2024-07-12] MEDS: FENTANYL CITR 100 MCG/2 ML ONE (15:13)
--- NOTE | 2024-07-12 15:51 | RAD REPORT ---
EXAMINATION: ONE VIEW CHEST XR CLINICAL INDICATION: s/p port a cath insertion TECHNIQUE: Frontal chest projection is submitted. Examination is limited by patient positioning and t echnique. COMPARISON: No prior exam. FINDINGS: Right-sided port catheter is in place with its tip in SVC. Lungs are clear. No pneumothorax. The hear t is upper limit normal in size.
--- NOTE | 2024-07-12 15:53 | RAD REPORT ---
EXAM: Fluoroscopy use, Fluoroscopy <1 Hour HISTORY: PORT A CATH PLACEMENT COMPARISON: None FINDINGS: Multiple images were sent to PACS, during a fluoroscopically guided procedure. No radiologi st was involved in protocoling or performance of the study, and no radiologist was present for the duration of the procedure. No interpretation of the saved images will be provided. Total fluoroscopy time: 0.3 min. IMPRESSION: Documentation of fluoroscopy use as above. Transcribed Date/Time: 07/12/2024 3:53 PM
--- NOTE | 2024-07-12 15:54 | OP ---
Date of Procedure: 07/12/2024 Surgeon: Hema Mcgill MD, Preoperative Diagnosis: Lymphadenopathy. Postoperative Diagnosis: Lymphadenopathy. Procedure Performed: 1. Placement of right internal jugular chemotherapy port. 2. Left inguinal superficial lymph node biopsy. Anesthesia: General endotracheal plus local. Estimated Blood Loss: Less than 10 cc. Specimens: Left inguinal lymph node and adipose tissue. Findings: Normal-size lymph nodes and catheterization at SVC confluence. Complications: None. Implants: Chemotherapy port. He was transferred to recovery room in good condition. Procedure In Detail: After informed was obtained, the patient was brought to the operating room and prepped and draped in the usual sterile fashion. After adequate anesthesia was achieved, I placed th e patient in steep Trendelenburg position. Using ultrasound guidance, I cannulated the right interna l jugular vein on the first attempt. I then placed a microwire into the confluence of the SVC. Fluo roscopic guidance confirmed position of the catheter at the confluence of the SVC. At this point, I made a small facundo incision overlying the insertion site and placed a microintroducer sheath. I then placed a standard wire and using fluoroscopic guidance, confirmed the position of the guidewire and t he confluence of the superior vena cava. Once again, the sheath remained in place. At this point, t he catheter wire was secured at this point. I found a trach on the chest at the infraclavicular posi tion, 45 cm of the clavicle, anesthetized the entire tract, made a small pocket after making an incis ion overlying the skin of the prepectoral fascia. He has a tunneling device and brought the catheter up to the insertion site. At this point, I then placed the introducer sheath using Seldinger techni que under fluoroscopic guidance, ultimately placed the catheter at the confluence of the SVC. Under fluoroscopic guidance, the catheter sheath was removed and the catheter was placed in optimal positio n of the confluence of the SVC. At this point, the catheter was attached to the port with a lock col lar and the subcutaneous port was then placed into the chest wall, secured to the prepectoral fascia using interrupted 3-0 Prolene sutures and the incisions were all irrigated. At this point, I flushed the catheter until completely clear and placed heparin super flush into the catheter site at that ti me. I then proceeded to irrigate the incisions. At this point, I closed the Port-A-Cath site on the chest wall using interrupted 3-0 Vicryl sutures and skin was closed with 4-0 Monocryl in a running f ashion. Dermabond placed over top. I then turned my attention to the left groin. The area was re-p repped and draped in the usual sterile fashion. After adequate anesthesia was maintained, I anesthet ized the area with 0.25% Marcaine. I palpated the area, injected methylene blue at the inferior aspe ct of the leg and then all the main incision down to subcutaneous tissues. I used electrocautery to dissect down the subcutaneous fat ultimately finding a blue tract and taking out several pieces of ad ipose tissue and area of blue consistent with a tract. I followed the tract back to an inguinal lymp h node, which was adjacent to the saphenous vein. It was on the medial aspect of the saphenous vein superficial to it. At this point, the blue dye was in this area and as such, I ligated this using a combination of clips on the lymphatic channels feeding to and from this area as well as the vascular supply with a small clip pillow agent. At this point, the area was ligated with 2 sutures at the end for marked incision over the proximal aspect. It was sent off for pathologic examination at this point a s a fresh specimen. The area was copiously irrigated. Hemostasis was achieved at this point without additional hemostatic maneuvers. I then closed the deep dermal plane using interrupted 3-0 Vicryl s uture. The skin was then closed with interrupted donta and a drain was placed, which was drainage strip was placed using 0.25-inch iodoform packing and a sterile dressing was placed over top. The pa trevin tolerated the procedure without incident or complication, transferred back to PACU in good condition. All counts were correct at the end of the case. TK/MODL Voice ID: [id number] Report ID: [id number]
[2024-07-12] MEDS ORDERED: HYDROCODONE/APAP 7.5/325 MG TAB ONE (16:25)
[2024-07-12] MEDS: HYDROCODONE/APAP 7.5/325 MG TAB PO ONE (16:26)
[2024-07-12 17:58] VITALS: BP 134/82; TEMP 97.4; O2SAT 99
== END 2024-07-12 17:08 | disposition home or self-care (01) ==
LOC: OR 09:19
PROVIDERS: ATTEND Surgery
PROC: 07TJ0ZZ Resection of Left Inguinal Lymphatic, Open Approach (ICD-10-PCS; 2024-07-12)
PROC: 0JH60WZ Insertion of Totally Implantable Vascular Access Device into Chest Subcutaneous Tissue and Fascia, Open Approach (ICD-10-PCS; principal; 2024-07-12 11:00)
PROC: 07BJ0ZX Excision of Left Inguinal Lymphatic, Open Approach, Diagnostic (ICD-10-PCS; 2024-07-12 11:00)
DX: C91.10 Chronic lymphocytic leukemia of B-cell type not having achieved remission (principal); M79.89 Other specified soft tissue disorders; D36.0 Benign neoplasm of lymph nodes
CPT/HCPCS: 36561; 38500; 93005; 88305; 71045; J1644 ×2; A4216; J2704; J1100; J2003; J2250; J3010 ×4; J2405; J7120 ×2; C1788; 76000

== ENCOUNTER 2025-01-04 08:16 | Day surgery (SDC) | payer OTHER ==
[2025-01-04] MEDS ORDERED: NA CHLORIDE 0.9% 1,000 ML ONE (08:55)
[2025-01-04 09:08] LABS: PT Prothrombin Time 13.7 SECONDS (10-13.0); PTT, Activated Partial Thromb 29.6 SECONDS (27.2-37.4); Protime INR 1.22
[2025-01-04] MEDS: DIAZEPAM 5 MG TABLET ONE (09:26)
--- NOTE | 2025-01-04 11:36 | RAD REPORT ---
PROCEDURE: ULTRASOUND GUIDED THORACENTESIS CLINICAL INDICATION: PLEURAL EFFUSION PROCEDURE DETAILS: Consent: Informed consent for the procedure including risks, benefits and alternatives was obtained a nd time-out was performed prior to the procedure. Preparation: The site was prepared and draped using maximal sterile barrier technique including cutan eous antisepsis. Procedure: Initial limited thoracic ultrasound was performed and a large pleural effusion was seen. A safe window for thoracentesis was identified with ultrasound to hayden a suitable access site. Local anesthesia was administered. The pleural cavity was accessed, and fluid return confirmed position. A 8F [id number]-[id number] catheter was placed and fluid was drained. The catheter was removed, and a sterile bandage was applied. . Estimated blood loss: Less than 10 mL. IMPRESSION: LEFT ultrasound guided thoracentesis, yielding 1000 mL of bloody red fluid. Additional procedure(s): Limited thoracic ultrasound. PLAN: Aspirated fluid was sent for analysis.
[2025-01-04 11:55] VITALS: TEMP 97; BMI 25.9
[2025-01-04 12:05] VITALS: BP 122/82; O2SAT 94
--- NOTE | 2025-01-04 12:34 | RAD REPORT ---
EXAMINATION: ONE VIEW CHEST XR CLINICAL INDICATION: post thorcentesis TECHNIQUE: Frontal chest projection is submitted. Examination is limited by patient positioning and t echnique. COMPARISON: 07/12/2024 FINDINGS: Small volume of left pleural fluid is present. Moderate opacity in the medial left lung base probably atelectasis or infiltrate. No evidence of postprocedure pneumothorax. Right lung is grossly clear. The heart is normal in size. Right-sided venous catheters tip in SVC. IMPRESSION: No postprocedure pneumothorax.
[2025-01-04 14:02] LABS: Color of fluid Red (COLORLESS)
[2025-01-04 14:04] LABS: Fluid Total Cells Count 100
== END 2025-01-04 13:18 | disposition home or self-care (01) ==
LOC: DS 08:16
PROVIDERS: ATTEND Radiology Radiation Oncology
DX: C83.08 Small cell B-cell lymphoma, lymph nodes of multiple sites (principal)
CPT/HCPCS: 36415; 88108; 89050; 83615; 84157; 85610; 82945; 88305; 85730; 71045; 32555; J7030